=== PATIENT | female | born 1995 | race Caucasian/White ===

== ENCOUNTER 2025-05-02 13:07 | Emergency (ER) | payer OTHER, SELFPAY ==
[2025-05-02 13:28] VITALS: BP 130/66; PULSE 70; RESP 18; TEMP 37.2; O2SAT 99; BMI 25.1
--- OUTSIDE RECORDS SUMMARY | 2025-05-02 13:36 | XMS_ITS | Clinical Summary ---
Author Organization [facility] Address [address] [place] [address] Care Team Providers Care Acute Care Assistant Name Role Phone Unavailable Primary Care Provider Unavailabl e Social History Tobacco Use Types Packs/Day Years Used Date Smoking Tobacco: Never Assessed Comments Unknown Sex and Gender Information Value Date Recorded Sex Assigned at Not on file Legal Sex Female 7:41 PM EDT Gender Identity Not on file Sexual Orientation Not on file Plan of Treatment Health Maintenance Due Date Last Done Comments [facility]-Depression Screening 1995 [facility]-/Child/Adol SDOH Screenings 1995 [facility]-Varicella Vaccines (1 of 2 - 13+ 2-dose series) 2008 HPV Vaccines (1 - 3-dose series) 2010 [facility]- SDOH Screenings 2013 [facility]-Adult SDOH Screenings 2013 [facility]-DTaP,Tdap,and Td Vaccines (1 - Tdap) 2014 [facility]-Hepatitis B Vaccines (1 of 3 - 19+ 3-dose series) 2014 [facility]-Pap Smear 2016 09/16/2006 IWT-PJTTS-90 Vaccine (3 - 2023- season) 2024 08/10/2021, 07/20/2021 [facility]-Cervical Cancer Screening 2025 [facility]-HPV/Cotest 2025 09/16/2006 [facility]-Influenza Vaccine (Season Ended) 2025 [facility]-Zoster Vaccines (1 of 2) 2045 [facility]-HIB Vaccines Aged Out No longer e ligible based on patient's age to complete this topic [facility]-Hepatitis A Vaccines Aged Out No longer eligible based on patient's age to complete this topic [facility]-IPV Vaccines Aged Out No longer e ligible based on patient's age to complete this topic [facility]-Pneumococcal Vaccine: Pediatrics (0 to 5 Years) and At-Risk Patients (6 to 49 Years) Aged Out No longer eligible b ased on patient's age to complete this topic [facility]-Rotavirus Vaccines Aged Out No lo nger eligible based on patient's age to complete this topic Procedures Procedure Name Priority Date/Time Associated Diagnosis Comments CYTO DATA CONVERSION Routine 09/16/2006 12:00 AM EST from Last 3 Months or Most Recently Relevant to Health Maintenance Results * Cytology (09/16/2006 12:00 AM EST) Cyst fluid specimen (specimen) 09/16/2006 09/17/2006 8:25 AM EST Narrative SUNQUEST - 09/18/2006 4:41 PM EST [facility] MR #: [id number] [facility] [address] [place], [place] [address] 1995 (Age: 11) F Collect Date: 09/16/2006 00:00 Receipt Date: 09/17/2006 08:25 Page 1 DEPARTMENT OF PATHOLOGY AND LABORATORY MEDICINE CYTOPATHOLOGY REPORT Email: [email or web address] ATTENDING MD/Practitioner: Noel Jesus MD Service: PDS Location: 4W Reported: 09/18/2006 16:41 Collected: 09/16/2006 00:00 DIAGNOSIS A. OVARIAN CYST FLUID: NO MALIGNANCY IDENTIFIED. LYMPHOCYTES PRESENT. Electronically Signed Out Chela Mckay, TARAN(ASCP) Giselle Mcelroy MD PROCEDURES/ADDENDA GROSS DESCRIPTION: 50 ml's of tinted fluid. CLINICAL INFORMATION: CLINICAL DIAGNOSIS ovarian cyst, torsed ovary SPECIMEN DESCRIPTION: A: OVARIAN CYST FLUID THIN PREP PROCESS CELLULAR ENHANCEMENT ICD: 620.2 OVARIAN CYST NEC NOS F: A; 59828 SNOMED CODES: A; C96747 [id number] A resident has participated in this service. A pathologist has performed and is responsible for the reported pathologic evaluation. us Historical Provider MD LAB PATHOLOGY ORDERABLES Final Result SUNQUEST from Last 3 Months or Most Recently Relevant to Health Maintenance Insurance
--- OUTSIDE RECORDS SUMMARY | 2025-05-02 13:36 | XMS_ITS | Continuity of Care Document ---
[facility] Address [address] [place] [address] Assessment No assessment recorded. Plan of Treatment Reminders Order Date Submit Date Provider Last Modified By Organization Details Last Modified Time Details Appointments None recorded. Lab rapid strep group A, throat 025 [facility], [address] [place], [address], 5 10:50:07 dayna moreno virus Ab panel, serum 025 [facility], [address], [place], [address], 5 14:37:33 TSH, ultra-sen sitive, serum 025 025 [facility], [address], [place], [address], 5 14:37:34 CBC w/ auto diff 025 025 [facility], [address], [place], [address], 5 14:37:32 Referral None recorded. Procedures None recorded. Surgeries None recorded. Imaging US, thyroid 025 [facility], [address] [place] [address] , [place], [address], 08:02:32 Medication Orders None recorded. Patient TargetsNo targets recorded. Patient InstructionsNo instructions recorded. Reason for Referral None Reported. Results Created Date Observation Date Name Description Value Unit Range Abnormal Flag Note LastModifiedBy Organization Detail LastModifiedTime 03/29/2003/29/2025 rapid strep group A, throa t Strep negati ve Not Available [facility] [address] [place], [place] [address] [place], [address], 03/28/2025 09:29:10 03/29/20 25 03/29/2025 rapid strep group A, throa t Culture No Not Available [facility] [address] [place], [place] [address] [place], [address], 03/28/2025 09:29:10 04/04/20 US, thyro id No observ ation record ed. [email or web address] [address] , [place], [address], 04/06/2025 15:02:54 Result Notes None recorded. Problems Name Problem SNOMED Code Status Onset Date Resolution Date Notes Provider Name and Address Organization Details Recorded Time Mastodyni a of bilateral breasts 724758783691 56120 Completed 202203/10/2023 Kiera No APRN [address], [place], [address], [place] - [facility] 3 22:42:04 Fibrocyst ic changes of bilateral breasts 115536806316 59187 Active 2022 Christina Agarwal APRN [address], [place], [address], [place] - [facility] 3 13:53:12 Body mass index 25-29 - overweigh t 456810179 Completed 202212/13/2024 Kiera No APRN [address], [place], [address], [place] - [facility] 5 14:33:46 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 290434222 Active 2022 Christina Stefano, DAIRY EQUIPMENT SPECIALIST [address], [place], [address], [place] - [facility] 3 13:19:45 Tendernes s of breast 00203981 Completed 202212/12/2024 Kiera No, DAIRY EQUIPMENT SPECIALIST [address], [place], [address], [place] [facility] 5 15:33:26 Acute sinusitis 50415778 Completed 202212/12/2024 Josey Abbott null, [place] - [facility] 5 15:01:00 Laborator y test result abnormal 759722091 Active 2022 Hema [place], DO [address], [place], [address], [place] [facility] 3 08:50:30 Cough 41789068 Completed 202212/12/2024 Josey Abbott null, [place] - [facility] 5 15:01:04 Tension-t ype headache 104705256 Active 2022 Hema Soheila, DO [address], [place], [address], [place] [facility] 3 11:20:15 Benign fascicula tion-cram p syndrome 767383180 Active 2023 Hema Soheila, DO [address], [place], [address], [place] [facility] 4 13:05:16 Neck pain 85880171 Active 2023 Hema Soheila, DO [address], [place], [address], [place] [facility] 4 13:24:02 Irregular periods 76553338 Active 2024 Kiera No, DAIRY EQUIPMENT SPECIALIST [address], [place], [address], [place] [facility] 5 15:33:36 Body mass index 20-24 - normal 323401988 Active 2024 Kiera No, DAIRY EQUIPMENT SPECIALIST [address], [place], [address], [place] - [facility] 5 14:33:38 Chronic sore throat 202966631 Active 2024 Hema Parnell DO [address], [place], [address], [place] - [facility] 5 09:29:03 Problem Notes None recorded. Procedures Surgical History Date Name Laterality Status Provider Name and Address Organization Details Recorded Time 5 Date of Last Pap Smear completed Kiera No, DAIRY EQUIPMENT SPECIALIST [address], [place], [address], [place] - [facility] 12/14/2024 13:22:07 Removal of ovarian cyst(s) completed Josey Abbott [place] - [facility] 01/21/2023 08:37:34 Imaging Results None recorded. Procedure Notes None recorded. Medical Equipment None Reported. Allergies Allergen ID Allergen Name Allergen Category Reaction Reaction Severity Criticality Documentation Date Start Date Code Code System Note Provider Name and Address Organization Details Recorded Time 549452 Substance with sulfonami de structure and antibacte rial mechanism of action (substanc e) medicatio n rash Not available Not available 01/21/2023 71485 8003 SNOMED Josey Abbott [place], [place] - [facility] 3 08:32:22 Medications Name Sig Start Date Stop Date Status Note LastModified by Organization Details LastModified Time cyclobenzap rine 10 mg tablet Take 1 tablet every 4-6 hours by oral route as needed for 10 days. 07/03 completed Not Available Not Available Not Available amoxicillin 500 mg capsule 08/11 completed Not Available Not Available Not Available prednisone 10 mg tablet Take 1 tablet twice a day by oral route for 3 days. 07/24 completed Not Available Not Available Not Available doxycycline hyclate 100 mg capsule Take 1 capsule twice a day by oral route for 7 days. 05/18 completed Not Available Not Available Not Available azithromyci n 250 mg tablet TAKE 2 TABLETS (500 MG) BY ORAL ROUTE ONCE DAILY FOR 1 DAY THEN 1 TABLET (250 MG) BY ORAL ROUTE ONCE DAILY FOR 4 DAYS 12/12 completed Not Available Not Available Not Available prednisone 20 mg tablet Take 3 tablets every day by oral route for 5 days. 02/25 completed Not Available Not Available Not Available methocarbam ol 750 mg tablet Take 1 tablet twice a day by oral route for 3 days. 07/14 completed Not Available Not Available Not Available mupirocin 2 % topical ointment APPLY A SMALL AMOUNT TO THE AFFECTED AREA BY TOPICAL ROUTE 3 TIMES PER DAY 06/01 completed Not Available Not Available Not Available albuterol sulfate HFA 90 mcg/actuati on aerosol inhaler Inhale 2 puffs every 4 hours by inhalatio n route for 30 days. active Not Available Not Available No t Available fluticasone propionate 50 mcg/actuati on nasal spray,suspe nsion Tidioute 1 spray twice a day by intranasa l route for 14 days. 03/07 completed Not Available Not Available Not Available amoxicillin 875 mg-potassiu m clavulanate 125 mg tablet Take 1 tablet every 12 hours by oral route for 10 days. 06/01 completed Not Available Not Available Not Available clindamycin phosphate 1 % topical solution APPLY A SMALL AMOUNT TO SKIN TWICE A DAY (MORNING AND NIGHT) 01/21 completed Not Available Not Available Not Available cyclobenzap rine 5 mg tablet Take 1 tablet 3 times a day by oral route as needed for 10 days. 12/12 completed Not Available Not Available Not Available Vitals Date Recorded Body height Heart rate Oxygen saturation Oxygen saturation in Arterial blood by Pulse oximetry Body temperature Respiratory rate Body mass index (BMI) Body weight Systolic And Diastolic Provider Name and Address Organization Details Last Updated DateTime 5 177.8 cm 68 /min 97 % 97 % 98.2 [degF] 18 /min 24.7 kg/m2 95704.8 9 g 112/78 mm[Hg] Pasquale Biu [place] - [facility] 5 10:19:55 Social History Question Answer Notes LastModified by Organizat ion Details LastModified Time Tobacco Smoking Status Former Smoker Josey [place], [place] - [facility] 01/21/2023 08:36:25 Do You Have An Advance Directive? No Information not available 03/07/2024 Are You Blind Or Do You Have Difficulty Seeing? No Information not available 06/01/2023 What Is Your Level Of Caffeine Consumption? Heavy [email or web address] Information not available 01/21/2023 In The 14 Days Before Symptom Onset, Have You Had Close Contact With A Laboratory-confir med COVID-19 While That Case Was Ill? No Information not available 05/18/2023 In The 14 Days Before Symptom Onset, Have You Had Close Contact With A Person Who Is Under Investigation For COVID-19 While That Person Was Ill? No Information not available 05/18/2023 Have You Been To An Area Known To Be High Risk For COVID-19? No Information not available 05/18/2023 Are You Deaf Or Do You Have Serious Difficulty Hearing? No Information not available 06/01/2023 Have You Processed Blood Or Body Fluids From An Ebola Virus Disease Patient Without Appropriate PPE? No Information not available 05/18/2023 Do You Reside In Or Have You Traveled To An Area Where Ebola Virus Transmission Is Active? No Information not available 05/18/2023 What Is The Highest Grade Or Level Of School You Have Completed Or The Highest Degree You Have Received? [id number] [email or web address] Information not available 01/21/2023 Have There Been Any Changes To Your Family Or Social Situation? No Information no t available 06/01/2023 When Did You Quit Smoking? 1-5yearssincelast cigarette Information not available 01/21/2023 Have You Recently Or Are You Planning To Travel To An Area With Zika Virus? No Information not available 05/18/2023 Last Menstrual Period? 11/21/2024 [email or web address] Information not available 12/12/2024 Do You Have A Medical Power Of Ecommerce Marketing Specialist? No Information not available 03/07/2024 What Was The Date Of Your Most Recent Tobacco Screening? 03/29/2025 Information not available 03/29/2025 What Is Your Current Pack Years? 10packyears [email or web address] Information not available 01/21/2023 What Is Your Relationship Status? Single [email or web address] Information not available 01/21/2023 Are You Sexually Active? Yes [email or web address] Information not available 01/21/2023 At What Age Did You Start Smoking Tobacco? 18 [email or web address] Information not available 01/21/2023 Has Tobacco Cessation Counseling Been Provided? Yes [email or web address] Information not available 01/20/2024 On What Date Was Tobacco Cessation Counseling Provided? 03/29/2025 Information not available 03/29/2025 How Many Years Have You Smoked Tobacco? 4 [email or web address] Information not available 01/21/2023 Do You Have Difficulty Walking Or Climbing Stairs? No Information not available 06/01/2023 What Contraceptive Method Was Reported At Start Of This Visit? None [email or web address] Information not available 01/21/2023 What Contraceptive Method Was Reported At End Of This Visit? None [email or web address] Information not available 12/12/2024 Do You Want To Talk About Contraception Or Prevention During Your Visit Today? No - I Do Not Want To Talk About Contraception Today Because I Am Here For Something Else Information not available 01/21/2023 Do You Have Any Future Plans To Get ? I'm OK Either Way [email or web address] Information no t available 01/21/2023 Sex: Female Functional Status Question Answer Note LastModified by thereNowat ion Details LastModified Time How many times per week do you consume alcohol? Less than 1 time per week [email or web address] Information not available 01/20/2024 Do you use any illicit or recreational drugs? No Information not available 01/21/2023 Do you or have you ever used any other forms of tobacco or nicotine? No [email or web address] Information not available 01/21/2023 What is your level of alcohol consumption? Occasional [email or web address] Information not available 01/21/2023 Are you currently employed? Yes [email or web address] Information not available 01/21/2023 Do you have transportation difficulties? No Information not available 06/01/2023 What is your status? Not [email or web address] Information no t available 01/21/2023 Are you able to walk? YESWOREST Information not available 06/01/2023 Do you have difficulty doing errands alone? No Information not available 06/01/2023 Are you able to care for yourself? 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 No Information not available 06/01/2023 Mental Status Question Answer Note LastModified by Organization D etails LastModified Time Do you have difficulty concentrating, remembering or making decisions? No Information no t available 06/01/2023 Family History Relationship Description Onset Age of this Age Resolved Age Notes LastModified by Organization Details LastModified Time Maternal Grandmother Anxiety disorder Not available 2022 08:34:31 Maternal Grandmother Depressive disorder Not available 2022 08:34:37 Maternal Grandmother Diabetes mellitus [email or web address] Not available 2022 08:34:54 Maternal Grandmother Malignant tumor of breast Not available 2022 08:35:14 Maternal Grandfather Myocardial infarction [email or web address] Not available 01/21 08:34:48 Paternal Grandfather Malignant neoplasm of lung [email or web address] Not available 2022 08:35:08 Sister Graves' disease [email or web address] Not available 2024 15:20:48 Maternal Aunt Graves' disease [email or web address] Not available 2024 15:20:48 Medical History Condition Response Pancreatitis N Other N Atrial Fibrillation N congenital heart disease N Blood Diseases N Hyperthyroidism N Rheumatoid arthritis N Blood Transfusion N Erectile Dysfunction N amputation N Skin Lesions N Depression N Pneumonia N Incontinence N Murmur N Edema N Alzheimer's Disease N Migraine Headaches N Tobacco Abuse N Anxiety Disorder N Hemorrhoids N Obesity N Vision or Eye Problems N Arthritis N Restless Leg Syndrome N Polyps N Infertility N Carpal Tunnel N Acid Reflux (GERD) N Cancer N Varicosities N Stroke N Tendonitis N Crohn's Disease N Hypercholesterolemia N Skin Cancer N Headaches N Fibromyalgia N Irritable Bowel Syndrome N Anal Fissure N Kidney Disease N Heart Problems N Hospitalizations N Gallstones N Kidney or Bladder Problems N Goiter N Acne N Eating Disorder N Ballard's Esophagus N Hypertriglyceridemia N Constipation N Embolism N Vitamin B12 Deficiency N Deviated Septum N AIDS/HIV N Myocardial Infarction N Asthma N Mitral Valve Disorders N Vertigo N Hepatitis N Thyroid Cancer N Neuropathy N History of DVT N Herniated Disc N Chicken Pox N Autism Spectrum Disorder (ASD) N Von Willebrands Disease N Thrombophilias N Breast Cancer N Hernia N Plantar Fasciitis N Hypothyroidism N Lung Disease N Defects or Inherited Disease N Breast Problem N Ovarian Cyst N Anesthesia Complications N Testosterone Deficiency N Interstitial Cystitis N Congenital Anomalies N Hypoglycemia N Blood clot N Vitamin D Deficiency N Cellulitis N Endometriosis N Bladder or Kidney Problems N Fracture N Colorectal Cancer N Panic Disorder N Schizophrenia N Concussion N Spina Bifida N Osteoarthritis N Parkinson's Disease N Disc Protrusion N STI N Esophagitis N Angina N Thyroid Problems N GI Problems N ADD/ADHD N Anemia N Multiple Sclerosis N Abnormal PAP N Lumbago N Mental Illness N Psychiatric Illness N Diabetes N Ovarian Cancer N Degenerative Disc Disease N Seizures/Epilepsy N Hyperlipidemia N Syncope N Insomnia N Eczema N Abuse/Domestic Violence N Attention Deficient Disorder N Dementia N Ulcerative colitis N Cerebrovascular Disease N Depression N Guillain-Sardis N Sleep Apnea N Aneurysm N Bronchitis N Heart Disease N Hypertension N Pre-Eclampsia N Suicidal Ideation N Osteoporosis N Gynecological History Statement/Question Response Flow Moderate Date of Last Mammogram Date of LMP 03/18/2025 STIs/STDs Y Duration of Flow (days) 4 Current Control Method None Age at Menarche 11 Last Annual Exam/Provider 12/12/24 with D T Frequency of Cycle (Q days) 28 Sexually Active? Y Date of Last Cervical Culture Menses Monthly Y Date of Last Pap Smear 12/12/2024 LMP Approximate Desired Control Method None Obstetrics History GPAL:G 0 P 0 0 0 0 Type Value Full Term 0 Living 0 Total 0 Immunizations Vaccine Type Date Status Note Provider Nam e and Address Organization Details Recorded Time COVID-19, mRNA, LNP-S, PF, 30 mcg/0.3 mL dose 07/20/2021 completed [facility] 01/21/2023 08:24:42 COVID-19, mRNA, LNP-S, PF, 30 mcg/0.3 mL dose 08/10/2021 completed [facility] 01/21/2023 08:24:42 Past Encounters Encounter ID Performer Location Encounter Start Date Encounter Closed Date Diagnosis/Indication Diagnosis SNOMED-CT Code Diagnosis ICD10 Code Diagnosis Note [id number] Hema Parnell DO [place] [address] [place] [place] [place] [address] 03/29/2025 09:58:31 03/29/2025 10:54:51 Chronic sore throat 293234684 J31.2 Throat pain. Patient had negative strep testing today in the office. Patient will have thyroid testing in the form of TSH as well as an ultrasound and we will also check EBV titers today. Patient will also have a CBC obtained although she did not have palpable lymphadeno megan. If testing remains normal, will refer patient to otolaryngo logy for considerat ion of direct visualizat ion. Health Concerns Section Related Observation LastModified by Organization Detai ls LastModified Time None Recorded Concern Status LastModified by Organization Details LastModified Time None Recorded Payers Encounter Date Sequence Insurance Name Policy Number Policy Coughlin Covered Member ID Coughlin Member ID Guarantor Name 03/29/2025 1 *SELF PAY* Tavares Kaiser Notes Date Note Type Note Provider Name and Address Organization Details Recorded Time 03/29/2025 text/html 29-year-old helena landeros seen in the office today for an acute visit for recurring sore throat.Patient states for the last 2 to 3 months she has noticed what she describes as throat pain. Patient states that is not scratchy or sore but she feels like it is more muscular. Patient is unsure what makes it better and she is unsure what makes it worse. Patient does have a family history of thyroid disease in the forms of Graves' disease as well as thyromegaly. Patient denies any reflux symptoms but states she does occasionally feel as if she has trouble swallowing. Patient also denies her symptoms getting worse with moving her neck. Hema Parnell, DO [address], [place], [address], [place] - [facility] 03/29/2025 11:10:46 OBGyn Episode No OBEpisode recorded.
--- OUTSIDE RECORDS SUMMARY | 2025-05-02 13:36 | XMS_ITS | Data Portability ---
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 Possible RAD 2. Dyspnea *PFT (01/25/2024): no restriction, borderline midlfow obstruction PFT completed at outside facility *FeNO (2024): 15 3. History of pleurisy 4. Seasonal allergies Plan 1. Sample Trelegy 100 mcg 1 puff daily; Rinse mouth; I personally demonstrated use of the Ellipta device during todays office visit 2. Renew Albuterol HFA prn; Discussed indications for use 3. Order RAST/CBC/IgE (sent to [facility]) 4. Advised to avoid known triggers 5. RTO in 2 weeks for medication follow up and lab review *FeNO measurement was obtained in the office today due to the patient's complaints of shortness of breath and cough. Not available 04/05/2024 18:32:10 04/28/2024 04/28/2024 Imaging Studies Reviewed *CXR (08/14/2023): no acute findings Assessment 1. Possible RAD 2. Dyspnea *PFT (01/25/2024): no restriction, borderline midlfow obstruction PFT completed at outside facility *FeNO (2024): 15 3. History of pleurisy 4. Seasonal allergies *RAST Panel (2024): +[place] elm tree *IgE: 65 *EOS: 70 Plan 1. Continue Trelegy 100 mcg 1 puff daily; Rinse mouth after each use (RX sent & Co Pay card provided to patient) 2. Continue Albuterol HFA prn; Discussed indications for use 3. Advised to avoid known triggers 4. RTO in 6 months, sooner if needed Portions of this note may be dictated using voice recognition software and or use of a hospital medical biller. Variances in spelling and vocabulary are possible and unintentional. Not all errors are caught/corrected . Please notify the author if any discrepancies are noted or if the meaning of any statement is not clear. This is a summary discussion with the patient and in no way is intended to be a verbatum summation of everything discussed. We apologize for any inconvenience. Not available 04/28/2024 15:15:14 10/31/2024 10/31/2024 Imaging Studies Reviewed *CXR (08/14/2023): no acute findings Assessment 1. Possible RAD 2. Dyspnea *PFT (01/25/2024): no restriction, borderline midlfow obstruction PFT completed at outside facility *FeNO (2024): 15 3. History of pleurisy 4. Seasonal allergies *RAST Panel (2024): +[place] elm tree *IgE: 65 *EOS: 70 Plan 1. Patient discontinued Trelegy 100 mcg 2. Continue Albuterol HFA prn; Discussed indications for use 3. Advised to avoid known triggers 4. RTO as scheduled for PFT and results This service is rendered via Telehealth. Prior to interview, patient confirmed their name and full date of as unique identifiers. Patient informed of the telehealth visit process by this policy writer. Telehealth was described to patient as the use of communication technology to provide clinical care from a distance. Telehealth visits can provide the same medical standard of care as visits conducted in an office for specific conditions. Patient informed that medical information during telehealth visits will be handled with strict confidentiality, privacy and security; however, there are risks associated with any communication technology. Patient granted their verbal consent to proceed with this visit via technology based communication. Provider Location: [place] Office Patient Location: Patients Car Start Time:1359 Stop Time:1403 Total clinician time spent on date of this encounter is 30 minutes. Portions of this note may be dictated using voice recognition software and or use of a hospital medical biller. Variances in spelling and vocabulary are possible and unintentional. Not all errors are caught/corrected . Please notify the author if any discrepancies are noted or if the meaning of any statement is not clear. This is a summary discussion with the patient and in no way is intended to be a verbatum summation of everything discussed. We apologize for any inconvenience. Not available 10/31/2024 18:10:24 11/09/2024 11/09/2024 Imaging Studies Reviewed *CXR (08/14/2023): no acute findings Assessment 1. Possible RAD 2. Dyspnea *PFT (01/25/2024): no restriction, borderline midlfow obstruction PFT completed at outside facility *PFT (11/09/2024): no obstruction, mild restriction, no change after MELINDA *FeNO (2024): 15 3. History of pleurisy 4. Seasonal allergies *RAST Panel (2024): +[place] elm tree *IgE: 65 *EOS: 70 Plan Order CXR (sent to [facility]) RX Z gera as directed 1. Patient discontinued Trelegy 100 mcg; Resume 1 puff daily for next 5 days 2. Continue Albuterol HFA prn; Discussed indications for use (RX Renewed) 3. Advised to avoid known triggers 4. RTO in 6 months, sooner if needed The patient underwent pulmonary function testing today to evaluate complaints of dyspnea. Results were discussed with the patient. Portions of this note may be dictated using voice recognition software and or use of a hospital medical biller. Variances in spelling and vocabulary are possible and unintentional. Not all errors are caught/corrected . Please notify the author if any discrepancies are noted or if the meaning of any statement is not clear. This is a summary discussion with the patient and in no way is intended to be a verbatum summation of everything discussed. We apologize for any inconvenience. Not available 11/09/2024 14:18:28 Plan of Treatment Reminders Order Date Submit Date Provider Last Modified By Organization Details Last Modified Time Details Appointments COMPLETE PFT 2024 02:00P M Pulmonary _testing Schedule Not available Not available Not available FOLLOW_UP 2024 02:40P M Mirlande Chin, [employer] Not available Not available Not available Lab CBC w/ diff 2023 024 [facility] (Registration ), [address], [place], [address], 04/13/2024 08:35:23 respirato ry allergen panel - [facility] - TEST FOR ZONE 5 2023 024 [facility] (Registration ), [address], [place], [address], 04/11/2024 08:38:54 Referral None recorded. Procedures None recorded. Surgeries None recorded. Imaging XR, chest, 2 view 2024 025 [facility] (Registration ), [address], [place], [address], 11/09/2024 16:27:38 Medication Orders Zithromax Z-Gera 250 mg tablet 2024 025 [facility] [id number], [address] , [place], [address], 11/09/2024 13:55:30 albuterol sulfate HFA 90 mcg/actua tion aerosol inhaler 2024 025 [facility] [id number], [address] , [place], [address], 11/09/2024 13:55:32 albuterol sulfate HFA 90 mcg/actua tion aerosol inhaler 2023 024 [facility] [id number], [address] , [place], [address], 2024 15:56:58 Patient TargetsNo targets recorded. Patient InstructionsNo instructions recorded. Reason for Referral None Reported. Results Created Date Observation Date Name Description Value Unit Range Abnormal Flag Note LastModifiedBy Organization Detail LastModifiedTime 04/08/20 24 2024 fract ional exhal ed nitri c oxide * No observ ation record ed. Not Available 2023 13:25:03 04/08/20 24 04/08/2024 compl ete PFT w/ post [facility] hodil ator rafael metry * No observ ation record ed. [email or web address] Not Available 2023 15:41:37 04/08/20 24 08/14/2023 XR, chest , 2 view No observ ation record ed. [email or web address] Not Available 2023 15:52:59 11/09/19 25 11/09/2024 XR, chest , 2 view No observ ation record ed. [email or web address] [place] [address] , [place], [address], 11/10/2024 11:16:51 11/14/19 25 11/09/2024 compl ete PFT* No observ ation record ed. [email or web address] Not Available 2024 16:08:27 Result Notes None recorded. 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 336367484 Active 2023 david [place], [place] - [facility] 4 09:36:37 Acute sinusitis 58760207 Active 2023 david gabriel null, [place] - [facility] 4 09:36:53 Tenderness of breast 38154179 Active 2023 david gabriel null, [place] - [facility] 4 09:37:25 Cough 46332776 Active 2023 david tuel null, [place] - [facility] 4 09:37:38 Fibrocystic changes of bilateral breasts 5197758274331 9105 Active 2023 david tuel null, [place] - [facility] 4 09:38:13 Mycoplasma species or Ureaplasma urealyticum 104864428 Active 2023 david tuel null, [place] - [facility] 4 09:39:21 Frequent headache 310414273 Active 2023 david tuel null, [place] - [facility] 4 09:40:25 Dyspnea 364026575 Active 2023 david tuel null, [place] - [facility] 4 09:40:38 Seasonal allergy 271700394 Active 2023 Mirlande Chin NP [address], [place], [address], [place] - [facility] 4 15:55:38 Pleurisy 316870643 Active 2023 Mirlande Chin NP [address], [place], [address], [place] - [facility] 4 18:32:17 Reactive airway disease 937830375969 Active 2023 Mirlande Chin NP [address], [place], [address], [place] - [facility] 4 14:42:18 Upper respiratory infection 63618502 Active 2024 Mirlande Chin NP [address], [place], [place], [address], [place] - [facility] 5 13:54:12 Problem Notes None recorded. Procedures Surgical History Date Name Laterality Status Provider Name and Address Organization Details Recorded Time Removal of ovarian cyst(s) completed brady preston [facility] 2024 15:35:20 Imaging Results None recorded. Procedure Notes None recorded. Medical Equipment None Reported. Allergies Allergen ID Allergen Name Allergen Category Reaction Reaction Severity Criticality Documentation Date Start Date Code Code System Note Provider Name and Address Organization Details Recorded Time 38590 Substance with sulfonami de structure and antibacte rial mechanism of action (substanc e) medicatio n Not available Not available Not available 03/24/2024 64749 8003 SNOMED david [place] [facility] 09:34:30 Medications Name Sig Start Date Stop Date Status Note LastModified by Organization Details LastModified Time cyclobenzap rine 10 mg tablet 04/04 completed Not Available Not Available Not Available amoxicillin 500 mg capsule 04/04 completed Not Available Not Available Not Available prednisone 10 mg tablet 04/04 completed Not Available Not Available Not Available doxycycline hyclate 100 mg capsule 04/04 completed Not Available Not Available Not Available azithromyci n 250 mg tablet TAKE 2 TABLETS (500 MG) BY ORAL ROUTE ONCE DAILY FOR 1 DAY THEN 1 TABLET (250 MG) BY ORAL ROUTE ONCE DAILY FOR 4 DAYS active Not Available Not Available No t Available prednisone 20 mg tablet 04/04 completed Not Available Not Available Not Available methocarbam ol 750 mg tablet 04/04 completed Not Available Not Available Not Available mupirocin 2 % topical ointment 04/04 completed Not Available Not Available Not Available albuterol sulfate HFA 90 mcg/actuati on aerosol inhaler Inhale 2 puffs every 4 hours by inhalatio n route as needed for 30 days. active Not Available Not Available No t Available fluticasone propionate 50 mcg/actuati on nasal spray,suspe nsion 04/04 completed Not Available Not Available Not Available amoxicillin 875 mg-potassiu m clavulanate 125 mg tablet 04/04 completed Not Available Not Available Not Available Trelegy Ellipta 100 mcg-62.5 mcg-25 mcg powder for inhalation Inhale 1 puff every day by inhalatio n route. 01/08 /2025 completed Not Available Not Available Not Available albuterol 90 mcg-budeson mando 80 mcg/actuati on HFA aerosol inhaler Inhale 2 inhalatio ns every 4 hours by inhalatio n route as needed. 04/04 completed Not Available Not Available Not Available Vitals Date Recorded Body height Body mass index (BMI) Body weight Oxygen saturation Oxygen saturation in Arterial blood by Pulse oximetry Heart rate Body temperature Systolic blood pressure Diastolic blood pressure Provider Name and Address Organization Details Last Updated DateTime 5 175.26 cm 25.1 kg/m2 86587.7 g 96 % 96 % 76 /min 98 [degF] 112 mm[Hg] 62 mm[Hg] david gabriel [facility] 5 13:46:48 Date Recorded Body weight Body mass index (BMI) Body height Oxygen saturation Oxygen saturation in Arterial blood by Pulse oximetry Heart rate Respiratory rate Body temperature Systolic blood pressure Diastolic blood pressure Provider Name and Address Organization Details Last Updated DateTime 4 50135.6 6 g 25.8 kg/m2 175.26 cm 100 % 100 % 75 /min 18 /min 98.6 [degF] 122 mm[Hg] 74 mm[Hg] brady preston [facility] 4 15:32:38 Date Recorded Body height Body mass index (BMI) Body weight Oxygen saturation Oxygen saturation in Arterial blood by Pulse oximetry Heart rate Respiratory rate Body temperature Systolic blood pressure Diastolic blood pressure Provider Name and Address Organization Details Last Updated DateTime 4 175.26 cm 25.8 kg/m2 48739.6 6 g 100 % 100 % 55 /min 16 /min 97.5 [degF] 102 mm[Hg] 70 mm[Hg] david gabriel [facility] 4 14:42:30 Social History Question Answer Notes LastModified by Organization Details LastModified Time Tobacco Smoking Status Former Smoker [place] [facility] 04/01/2024 11:56:21 Do You Have An Advance Directive? No [email or web address] Information not available 04/01/2024 Is Your Home Air Conditioned? Yes Information not available 2024 When Did You Quit Smoking? 1-5yearssincelast cigarette Information not available 04/01/2024 Where Do You Live? [place] Information not available 2024 Do You Have A Medical Power Of Mental Retardation Nurse? No [email or web address] Information not available 04/01/2024 What Was The Date Of Your Most Recent Tobacco Screening? 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 10-19packyears [email or web address] Information not available 04/01/2024 Do You Have Any Pets? Yes 5 Cats, 2 Dogs [email or web address] Information not available 2024 What Is Your Relationship Status? Single [email or web address] Information not available 04/01/2024 At What Age Did You Start Smoking Tobacco? 18 Information not available 04/01/2024 Are There Any Smokers In Your House? Yes Boyfriend Vapes [email or web address] Information not available 2024 Has Tobacco Cessation Counseling Been Provided? No [email or web address] Information not available 2024 How Many Years Have You Smoked Tobacco? 4 [email or web address] Information not available 04/01/2024 Have You Recently Traveled Abroad? No [email or web address] Information not available 04/01/2024 Are You Currently In School? No [email or web address] Information not available 2024 Sex: Unknown Functional Status Question Answer Note LastModified by Organizat ion Details LastModified Time Do you or have you ever used any other forms of tobacco or nicotine? No [email or web address] Information not available 04/01/2024 Are you currently employed? 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 Family History Relationship Description Onset Age of this Age Resolved Age Notes LastModified by Organization Details LastModified Time Maternal Grandmother Anxiety disorder [email or web address] Not available 04/01 11:58:23 Maternal Grandmother Depressive disorder [email or web address] Not available 04/01 11:58:35 Maternal Grandmother Diabetes mellitus Not available 04/01 11:58:49 Maternal Grandmother Malignant tumor of breast [email or web address] Not available 04/01 11:59:10 Maternal Grandfather Myocardial infarction Not available 03/04 11:59:19 Paternal Grandfather Malignant neoplasm of lung [email or web address] Not available 04/01 11:59:42 Medical History No medical history recorded. Gynecological HistoryNo gynecological history recorded. Obstetrics History GPAL:G 0 P 0 0 0 0 Past Encounters Encounter ID Performer Location Encounter Start Date Encounter Closed Date Diagnosis/Indication Diagnosis SNOMED-CT Code Diagnosis ICD10 Code Diagnosis Note [id number] Mirlande Chin NP [address] [place] [address] [place] [address] 0 2024 15:13:45 04/06/2024 14:47:01 Seasonal allergy 772440161 J30.2 Dyspnea 508024307 R06.00 [id number] Mirlande Chin NP [address] [place] [address] [place] [address] 0 04/28/2024 14:37:56 04/28/2024 15:07:25 Seasonal allergy 131331183 J30.2 Dyspnea 482272026 R06.00 Reactive a irway disease 8601297016 06 J45.909 [id number] Mike Maza DO [address] [place] [address] [place] [address] 0 10/31/2024 13:46:55 10/31/2024 14:22:10 Reactive airway disease 3146805639 06 J45.909 Seasonal allergy 8945902 04 J30.2 Dyspnea 494848823 R06.00 [id number] Mike Maza DO [address] [place] [address] [place] [address] 0 11/09/2024 13:12:17 11/09/2024 14:24:24 Reactive airway disease 1584843460 06 J45.909 Seasonal allergy 5959798 04 J30.2 Dyspnea 516913025 R06.00 Upper resp iratory infection 14272857 J06.9 Health Concerns Section Related Observation LastModified by Organization Detai ls LastModified Time None Recorded Concern Status LastModified by Organization Details LastModified Time None Recorded Advance Directives Directive N: Payers Insurance Date Sequence Insurance Name Policy Number Policy Coughlin Covered Member ID Coughlin Member ID Guarantor Name 11/09/2024 1 [place] [id number] Vidhya Workman [id number] Vidhya Workman 05/02/2025 1 [facility] [id number] Vidhya Workman [id number] Vidhya Workman Notes Date Note Type Note Provider Name and Address Organization Details Recorded Time 2024 text/html This 29 year-old female presents to the office for evaluation of dyspnea, and recurrent pleurisy.Patient reports episode of pleurisy in August that resolved and returned in December. She describes feeling a tickle in her lungs with deep breathing. She does note her symptoms can be aggravated by dust and cleaning products. Today she complains of shortness of breath with exertion and intermittent cough with clear mucus. She is not currently on any inhaled respiratory medications. She ran out of Albuterol about a month ago.She is a former 1/2 PPD smoker quitting in 2019. 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 A focused sleep assessment is negative for ELISE.Denies any fever, chills, nausea, vomiting, or diarrhea. Mirlande Chin NP [address], [place], [address], [facility] 04/05/2024 18:33:59 04/28/2024 text/html This 29 year-old female returns to the office to discuss the results of a RAST panel completed on (2024) and the ongoing management of dyspnea. The results and proposed treatment plan were discussed with the patient. The patient denies any further chest discomfort. No cough, wheezing, shortness of breath or nocturnal respiratory symptoms.She continues to use Trelegy 100 mcg with positive results and has been using her Albuterol inhaler 2 puffs every other day. Denies any fever, chills, nausea, vomiting, or diarrhea. Mirlande Chin NP [address], [place], [address], [place] - [facility] 04/28/2024 15:15:34 10/31/2024 text/html This is a 29 year-old female who presents to the office today via telemedicine audio/video visit via [facility] for the ongoing management of RAD. Patient denies any significant medical events since her last office visit. Patient does state she has moved into a newer home with less mold and dust exposure. Patient denies any shortness of breath. She does report occasional dry cough and wheezing when laughing. She is no longer using Trelegy (discontinued in June) and no use of RI. Denies any fever, chills, n/v/d, abdominal pain or lower extremity edema. Mirlande Chin NP [address], [place], [address], [facility] - [facility] 10/31/2024 18:10:47 11/09/2024 text/html This 29 year-old female returns to the office for the ongoing management of RAD. The patient complains of increased shortness of breath, a cough with yellow and clear phlegm, and a sensation of crackling in her chest over the past few days. Denies any recent use of Albuterol HFA. Patient would like to have a CXR today. Denies any fever, chills, n/v/d, abdominal pain or lower extremity edema. Mirlande Chin NP [address], [place], [address], [facility] - [facility] 11/09/2024 14:19:08 OBGyn Episode No OBEpisode recorded.
--- OUTSIDE RECORDS SUMMARY | 2025-05-02 13:37 | XMS_ITS | Data Portability ---
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 not available 03/29/2025 How Many Years Have You Smoked Tobacco? 4 [email or web address] Information not available 01/21/2023 Do You Have Difficulty Walking Or Climbing Stairs? No Information not available 06/01/2023 What Contraceptive Method Was Reported At Start Of This Visit? None [email or web address] Information not available 01/21/2023 What Contraceptive Method Was Reported At End Of This Visit? None [email or web address] Information not available 12/12/2024 Do You Want To Talk About Contraception Or Prevention During Your Visit Today? No - I Do Not Want To Talk About Contraception Today Because I Am Here For Something Else [email or web address] Information not available 01/21/2023 Do You Have Any Future Plans To Get ? I'm OK Either Way [email or web address] Information no t available 01/21/2023 Sex: Female Functional Status Question Answer Note LastModified by Organizat ion Details LastModified Time How many times per week do you consume alcohol? Less than 1 time per week [email or web address] Information not available 01/20/2024 Do you use any illicit or recreational drugs? No [email or web address] Information not available 01/21/2023 Do you or have you ever used any other forms of tobacco or nicotine? No [email or web address] Information not available 01/21/2023 What is your level of alcohol consumption? Occasional Information not available 01/21/2023 Are you currently employed? Yes [email or web address] Information not available 01/21/2023 Do you have transportation difficulties? No Information not available 06/01/2023 What is your status? Not [email or web address] Information no t available 01/21/2023 Are you able to walk? [email or web address] Information not available 06/01/2023 Do you have difficulty doing errands alone? No Information not available 06/01/2023 Are you able to care for yourself? 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 [email or web address] Information not available 01/21/2023 Do you have [...] available 2022 08:34:31 Maternal Grandmother Depressive disorder [email or web address] Not available 2022 08:34:37 Maternal Grandmother Diabetes mellitus [email or web address] Not available 2022 08:34:54 Maternal Grandmother Malignant tumor of breast [email or web address] Not available 2022 08:35:14 Maternal Grandfather Myocardial infarction [email or web address] Not available 01/21 08:34:48 Paternal Grandfather Malignant neoplasm of lung [email or web address] Not available 2022 08:35:08 Sister Graves' disease [email or web address] Not available 2024 15:20:48 Maternal Aunt Graves' disease Not available 2024 15:20:48 Medical History Condition [...] Obesity N Vision or Eye Problems N Restless Leg Syndrome N Arthritis N Infertility N Polyps N Carpal Tunnel N Acid Reflux (GERD) N Cancer N Stroke N Varicosities N Tendonitis N Crohn's Disease N Hypercholesterolemia N Skin Cancer N Fibromyalgia N Headaches N Anal Fissure N Irritable Bowel Syndrome N Kidney Disease N Heart Problems N [...] Cancer N Hernia N Plantar Fasciitis N Lung Disease N Hypothyroidism N Defects or Inherited Disease N Breast Problem N Ovarian Cyst N Anesthesia Complications N Testosterone Deficiency N Interstitial Cystitis N Congenital Anomalies N Hypoglycemia N Blood clot N Vitamin D Deficiency N Cellulitis N Endometriosis N Fracture N Bladder or Kidney Problems N Colorectal Cancer N Panic Disorder N [...] colitis N Cerebrovascular Disease N Depression N Guillain-[place]land N Sleep Apnea N Aneurysm N Bronchitis [...] Immunizations Vaccine Type Date Status Note Provider Yevgeniy dobbins and Address Organization Details Recorded Time COVID-19, mRNA, LNP-S, PF, 30 mcg/0.3 mL dose 07/20/2021 completed [place] - [facility] 01/21/2023 08:24:42 COVID-19, mRNA, LNP-S, PF, 30 mcg/0.3 mL dose 08/10/2021 completed Josey [place], [place] - [facility] 01/21/2023 08:24:42 Past Encounters Encounter ID Performer Location Encounter Start Date Encounter Closed Date Diagnosis/Indication Diagnosis SNOMED-CT Code Diagnosis ICD10 Code Diagnosis Note [id number] ELAINE Marroquin [employer] [address] [place] [address] [place] [address] 01/21/2023 08:15:14 01/21/2023 08:56:41 Mastodynia of bilateral breasts 2514281916 5847454 N64.4 Fibrocysti c changes of bilateral breasts 0433928371 3136104 N60.11 N60.12 [id number] ELAINE Marroquin [employer] [address] [place] [address] [place] [address] 03/09/2023 11:11:51 03/09/2023 11:56:40 Routine gynecologic examination done 9159813790 9101 Z01.419 Depression screening 171 570402 Z13.89 PHQ-9 completed today. Diet education 47854273 Z71.3 Counseling 724089688 Z71 .82 Exercise counselkeny quintana Patient encouraged to exercise 30 minutes 5 days a week. Examinatio n of blood pressure 879813163 Z01.30 Hypertensi on screening 995264522 Z13.6 Screening for malignant neoplasm of cervix 069914875 Z12.4 Body mass index 25-29 - overweight 669473206 Z68.25 Overweight 668664445 E66 .3 Fibrocysti c changes of bilateral breasts 3409044808 6840211 N60.11 N60.12 [id number] ELAINE Daniel [employer] [address] [place] [address] [place] [address] 04/16/2023 13:36:33 04/16/2023 14:04:00 Vaginal discharge problem 806260232 N89.9 [id number] Florencio Erazo APRN [address] [address] 05/18/2023 14:19:54 05/18/2023 15:46:12 Muscle tender point 860760998 R29.898 Fatigue 35340287 R53.83 return 2 weeks for review of labs and treatment plan Tick bite 23065585 W57.X XXA Cramp 00693587 R25.2 Disorder o f thyroid gland 84648538 E07.9 [id number] Florencio Erazo [address] [address] 05/21/2023 11:07:32 05/21/2023 12:04:12 Cat bite - wound 618645161 T14.8XXA keep areas clean and dryapply creamwatch for s/s of infectionr eturn if any worsening or no improvemen t [id number] 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 [address] 07/03/2023 09:40:36 07/03/2023 10:28:49 Strain of neck muscle 464714878 S16.1XXA [id number] Florencio Erazo [address] [address] 07/14/2023 14:37:42 07/14/2023 15:10:15 Strain of neck muscle 601998188 S16.1XXA follow up if no improvemen t [id number] Vernon TONE Fraire[address] [address] 07/24/2023 08:41:17 07/24/2023 09:07:31 Acute sinusitis 11609517 J01.90 Patient likely has an acute bacterial sinusitis. Will treat as below.No signs of preseptal or orbital cellulitis , meningismu s, or neurologic changes concerning for intracrani al process. Instructed family to monitor patient closely and call office for any of these symptoms.S upportive care reviewed: raising HOB, humidifier use, saline nasal spray, rest, encourage PO fluids and monitor hydration status, infection control measures.R ecommended acetaminop hen/ibupro fen PRN pain, fever; reviewed appropriat e doses.Foll ow-up as below. [id number] Florencio Erazo [address] [address] 08/11/2023 11:24:55 08/11/2023 12:00:49 Tick bite 95628224 W57.XXXA Lupus anti coagulant disorder 41827654 D68.62 recheck labs [id number] Hema Parnell DO [place] [address] [place] [address] 08/14/2023 10:55:25 08/14/2023 11:51:18 Cough 71062315 R05.9 Cough. Episodic. Chest x-ray reviewed and discussed with patient in detail. Patient will also have CBC and procalcito ant ordered today to assess. Patient will also have BELKIS level obtained. Patient will be given albuterol for symptom control as well as a 5-day course of prednisone . Tension-type headache 39 0349590 G44.209 Headache, tension. Differenti al diagnosis and usual treatment options discussed with patient in detail. Patient will be referred to physical therapy for cervical range of motion as well as local therapy to the cervical spine and posterior head musculatur e. Laboratory test result abnormal 367684752 R89.9 Lupus anticoagul ant panel abnormal. Patient recently had repeat labs drawn will await results for recommenda tions for further work-up. [id number] Hema Parnell [address] [place] [address] 01/20/2024 14:02:11 01/20/2024 14:23:58 Cough 66080568 R05.9 Cough. Concerns for asthma, patient will have pulmonary function test ordered today. Patient will also be given prednisone for 5 days and an albuterol inhaler to use as needed. Tension-type headache 39 1323340 G44.209 Headache, tension. Differenti al diagnosis and usual treatment options discussed with patient in detail. Body mass index 25-29 - overweight 394656938 Z68.25 Overweight 409832974 E66 .3 [id number] Hema Parnell [address] [place] [address] 02/26/2024 12:42:29 02/26/2024 13:15:47 Body mass index 25-29 - overweight 218724335 Z68.25 Benign fasciculation-cramp syndrome 405212603 R25.3 Benign fasciculat ion syndrome. Differenti al diagnosis and usual workup and treatment discussed with patient in detail. Patient was also warned about warning signs and when to reappoint herself. Patient will have CMP obtained today to assess for electrolyt e abnormalit y as a cause for the fasciculat ion. Will consider further workup if symptoms do not improve or change. [id number] Florencio Erazo APRN [address] [address] 03/07/2024 13:38:07 03/07/2024 14:18:54 Frequent headache 151585704 R51.9 due to vison issues, padilla not improving with tylenol,mo carri, or resting will obtain ct while waiting on neurology appointmen t Dyspnea 257901003 R06.00 [id number] Hema Parnell [address] [place] [address] 09/15/2024 12:59:41 09/15/2024 13:54:12 Body mass index 20-24 - normal 343772496 Z68.24 Neck pain 12667139 M54.2 Cervicalgi a. Discussed usual presenting diagnosis as well as differenti al diagnosis in detail. Believe likely related to muscle strain and patient was advised on stretching . Did offer physical therapy and massage therapy as treatment modalities . Patient was given cyclobenza demetria to use at night if necessary to get comfortabl e for sleep. Patient will reappoint herself if symptoms do not improve or worsen. 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 Diet education 05269164 Z71.3 Counseling 513290092 Z71 .82 Exercise counselkeny quan. Patient encouraged to exercise 30 minutes 5 days a week. Examinatio n of blood pressure 207709559 Z01.30 Hypertensi on screening 065701779 Z13.6 Body mass index 20-24 - normal 289560660 Z68.24 Vaccination declined 427 7541160 Z28.21 Seasonal flu vaccine offered and declined Irregular periods 631350 07 N92.6 Fibrocysti c changes of bilateral breasts 6512574461 8084818 N60.11 N60.12 Screening for malignant neoplasm of cervix 313782169 Z12.4 Immunization advised 310 893403 Z71.9 [id number] Hema Parnell DO [facility] [address] [place] [address] 03/29/2025 09:58:31 03/29/2025 10:54:51 Chronic sore throat 740261743 J31.2 Throat pain. Patient had negative strep [...] Member ID C[place] Member ID Guarantor Name 09/15/2024 1 *SELF PAY* Tavares Kaiser 09/15/2024 1 [place] [id number] Vidhya Aldrich Workirvin [id number] Vihdya Workman Notes Date Note Type Note Provider Name and Address Organization Details Recorded Time 4 text/html 28-year-old female seen in the office today for an acute visit for muscle twitching.Patient states that yesterday she noticed twitching to the right side of her neck. Patient states this has been going on for approximately 1 week. Patient did take a video of the muscle twitching in the right sternocleidomastoid muscle. Patient states she notices it mostly when she is sitting down but denies any pain or tightening. Patient states that the only change in supplement is a preworkout that has creatinine and caffeine but does admit to using a lot of caffeine throughout the day. Patient denies any other supplements at this point. Patient denies any other symptoms as discussed including presyncope, blurry vision, changes in balance, changes in urinary frequency or urge. Hema Parnell, DO [address], [place], [address], [place] - [facility] 02/26/2024 13:12:03 4 text/html 28 yr old female who presents to the office with concerns ofheadaches x about 3 months, feels like pressure and random throbbing, pt states she has noticed some vison changes.pt states was told she had pleurisy last fall, states she feels the same, no improvement when breathing IN, feels like she has to cough a lot. had pfts completedpt states her right neck twitches, states is annoying and you can see when its happening and it comes and goes. pt states she has cut back on pre workout supplement and it is not as often but it still happening. Florencio Erazo, SPREADER OPERATOR [employer] [address], [place], [address], [place] - [facility] 03/07/2024 16:21:20 4 text/html 29-year-old female seen in the office today for an acute visit for neck pain.Patient states that she has been having neck and head pain for the last 2 weeks. Patient denies any injury and denies any radicular symptoms down into her arms. Patient states is worse with driving and laying in bed and she is unsure what makes it better. Patient describes it 5-6 out of 10 today. Hema Parnell DO [address], [place], [address], [place] - [facility] 09/15/2024 13:28:43 5 text/html Annual - MOBReported bypatient.History:Last annual exam: 03/09/23 Current Contraception: control not practiced; Monogamous relationship Preventive measures:Encourage self breast examination; Encourage regular exercise; Encourage no tobacco useNotes:Vidhya rto for AWE. She c/o cycles being different . She states she has a period monthly, just not the same time every month.She doesn't think she has had Gardasil, but is going to check with her mother. Discussed. She will call if she desires vaccination series. Kiera No, SPREADER OPERATOR [employer] [address], [place], [address], [place] [facility] 12/13/2024 14:35:20 5 text/html 29-year-old female seen in the office today for an [...] getting worse with moving her neck. Hema Parnell DO [address], [place], [address], [place] - [facility] 03/29/2025 11:10:46 OBGyn Episode No OBEpisode recorded.
--- OUTSIDE RECORDS SUMMARY | 2025-05-02 13:37 | XMS_ITS | Patient Health Record ---
Author Organization [facility] Address [address] [facility] [address] [place] [address] Care Team Providers Care Industrial Laborer Name Role Phone Maryan Castro Unavailable [phone] Americo Perrin Unavailable [phone] Allergies Allergen (clinical drug ingredient) Drug/Non Drug Allergy documented on EMR Reaction Allergy Type Onset Date Status Substance with sulfonamide structure and antibacterial mechanism of action (substance) Sulfa Antibiotics Unknown Drug Allergy Active Results Component Value Reference Range Flag Notes CT/NG/Angela/BV/Trich (Apti ma) Reviewed date:01/23/2025 03:01:06 PM Interpretation:Abnormal Performing Lab:[facility] - [place]ES[place] CLIA ID [id number], [address] [facility], [address], [place] [address], Director - Emanuel Thrasher MD Notes/Report: Chlamydia Trachomatis Negative Negative Neisseria Gonorrhoeae Negative Negative Bacterial Vaginosis Negative Negative The Aptima BV assay is a real time NAAT TMA assay developed for use on the automated [employer] system that detects and discriminates RNA markers from the Lactobacillus species group (L. gasseri, L. crispatus and L. jensenii), Gardnerella vaginalis, and Atopobium vaginae. The Aptima BV assay uses an algorithm for bacterial vaginosis based on detection of target organisms. Angela species Positive Negative A The CV Assay is a real time TMA assay developed for use on the automated [place] system that detects following Angela species organisms (C. albicans, C. tropicalis, C. parapsilosis, C. dubliniensis), but the assay does not differentiate among C spp. Angela glabrata Negative Negative Trichomonas Negative Negative Reason For Referral No Information Medications Medication SIG (Take, Route, Frequency, Duration) Notes Start Date End Date Status Albuterol Active Fluconazole 150 MG Tablet 1 tablet Orall y once; Duration: 1 days 01/20/2025 Active Social History Tobacco Use: Social History Observation Description Date Details (start date - stop date) Never Smoker NA - NA Sex Assigned At : Social History Observation Description Sex Assigned At Female Social History Drugs/Alcohol: Social Info Question Answer Notes Drugs Have you used drugs other than those for medical reasons in the past 12 months? Marijuana, used to smoke frequently, haven't for about 6-7 years Drug/Alcohol: Social Info Question Answer Notes AUDIT-C (Standard) Did you have a drink containing alcohol in the past year? Yes Tobacco Use: Social Info Question Answer Notes Tobacco Control (Standard) Tobacco use: Nonsmoker Additional Details Category Social Info Options Details Miscellaneous: Domestic violence: No Caffeine: CAFFEINE USE: 3 Do you have any orthodoxy, m oral, or cultural beliefs or customs that your provider should know about? No Would you object to blood products in the event of an emergency? No Problems Problem Type SNOMED Code ICD Code Onset Dates Problem Status W/U Status Risk Notes Problem Herpes simplex viral infection (73659310) HSV infection (B00.9) Active confirmed Problem Cyst of ovary (30873461) Unspecified ovarian cysts (N83.20) 2 Active confirmed OVARIAN CYST Vital Signs Blood pressure diastolic 82 mm Hg 01/17/2025 Height 5ft 9 in in 01/17/2025 Blood pressure systolic 120 mm Hg 01/17/2025 Weight 168 lbs 01/17/2025 BMI 24.81 kg/m2 01/17/2025 Encounters Encounter Location Date Provider Diagnosis [facility] [address] [facility] [place] [address] 01/20/2025 Americo Perrin [facility] [address] [facility] [place] [address] 01/17/2025 Americo Perrin Acute vaginitis N76.0 and HSV infection B00.9 Assessments Encounter Date Diagnosis (ICD Code) Assessment Notes Treatment Notes Treatment Clinical Notes Section Notes 01/17/2025 HSV infection (ICD-10 - B00.9) Thoroughly discussed genital HSV. Informed patient that HSV is a virus that is spread through sexual contact. The virus can be spread even where there is not a present outbreak, it passes through a break in the skin. Many people infected with HSV have no symptoms. Explained that there is no cure for genital HSV, however oral medications are available to control the course of the disease. Discussed episodic treatment versus daily suppression treatment. Pt denies treatment for now as sores are healing up and no longer painful. 01/17/2025 Acute vaginitis (ICD-10 - N76.0) Plan Of Treatment No Information Insurance Providers Payer Name Payer Address Payer Phone Subscriber Number Group Number Insured Name Patient Relationship to Insured Coverage Start Date Coverage End Date [facility] [address] [place], [place] [id number] Vidhya Kaiser Self - patient is the insured Medical (General) History Medical History History ICD Code Yeast infections MENSTR FLOW: Medium Medical History: Lung Problems Surgical History Surgery Date(Month/Year) Ovarian cyst removal 2005
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
--- NOTE | 2025-05-02 14:13 | PC.NURSE ---
eye flushed out.
--- NOTE | 2025-05-02 14:13 | PC.NURSE ---
Carina filled out outpatient order for Rabies vaccines. Called and spoke with Olga, Infusion Charge on patient coming for infusions. Pt given information on day and time for infusions.
[2025-05-02] MEDS: RABIES VACCINE (PCEC)/PF 2.5 UNIT VIAL IM (14:14)
[2025-05-02 14:29] VITALS: BP 130/66; PULSE 81; RESP 18; TEMP 36.9; O2SAT 98
== END 2025-05-02 14:29 | disposition home or self-care (01) ==
PROVIDERS: Emergency Provider Student in an Organized Health Care Education/Training Program; PCP Family Medicine
DX: Z20.3 Contact with and (suspected) exposure to rabies (principal); Z23 Encounter for immunization; W55.89XA Other contact with other mammals, initial encounter
CPT/HCPCS: 90471; 90675; 99283

== ENCOUNTER 2025-05-05 10:03 | Outpatient (CLI) | payer OTHER, SELFPAY ==
--- OUTSIDE RECORDS SUMMARY | 2025-05-05 10:08 | XMS_ITS | Clinical Summary ---
Author Organization [facility] Address [address] [place] [address] Care Team Providers Care Watch Supervisor Name Role Phone Unavailable Primary Care Provider [...] 3-dose series) 2014 UKY-Pap Smear 2016 09/16/2006 [id number] Vaccine (3 - 2023- season) 2024 08/10/2021, [...] Narrative SUNQUEST - 09/18/2006 4:41 PM EST [facility] MR #: [id number] [facility] [address], [place] [address] 1995 (Age: 11) F Collect Date: 09/16/2006 00:00 Receipt Date: 09/17/2006 08:25 Page 1 DEPARTMENT OF PATHOLOGY AND LABORATORY MEDICINE CYTOPATHOLOGY REPORT Email: [email or web address] [phone] ATTENDING MD/Practitioner: Noel Jesus MD Service: PDS [...] 620.2 OVARIAN CYST NEC NOS F: A; 09906 SNOMED CODES: A; J86414 X20290 R11946 [id number] A resident has participated in this service. A pathologist has performed and is responsible for the reported pathologic evaluation. us Historical Provider MD LAB PATHOLOGY ORDERABLES Final Result SUNQUEST from Last 3 Months or Most Recently Relevant to Health Maintenance Insurance
--- OUTSIDE RECORDS SUMMARY | 2025-05-05 10:08 | XMS_ITS | Patient Health Record ---
Author Organization [facility] Address [address] [facility] [address] [place] [address] Care Team Providers Care Sales Donor Recruitment Representative Name Role Phone Maryan Castro Unavailable [phone] Americo Perrin Unavailable [phone] Allergies Allergen (clinical drug ingredient) Drug/Non Drug Allergy documented on EMR Reaction Allergy Type Onset Date Status Substance with sulfonamide structure and antibacterial mechanism of action (substance) Sulfa Antibiotics Unknown Drug Allergy Active Results Component Value Reference Range Flag Notes CT/NG/Angela/BV/Trich (Apti ma) Reviewed date:01/23/2025 03:01:06 PM Interpretation:Abnormal Performing Lab:[facility] - NEMESIO CLIA ID [id number], [address], [address], [place] [address], Director - Emanuel Thrasher MD Notes/Report: Chlamydia Trachomatis Negative Negative Neisseria Gonorrhoeae Negative Negative Bacterial Vaginosis Negative Negative The Aptima BV assay is a real time NAAT TMA assay developed for use on the automated [place] system that detects and discriminates RNA markers from the Lactobacillus species group (L. gasseri, L. crispatus and L. jensenii), Gardnerella vaginalis, and Atopobium vaginae. The Aptima BV assay uses an algorithm for bacterial vaginosis based on detection of target organisms. Angela species Positive Negative A The CV Assay is a real time TMA assay developed for use on the automated [place] system that detects following Angela species organisms [...] CAFFEINE USE: 3 Do you have any restorationist, m oral, or cultural beliefs or customs that your provider should know about? No Would you object to blood products in the event of an emergency? 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 [address] [place] [address] 01/20/2025 Americo Perrin [facility] [address] [place] [address] 01/17/2025 Americo Perrin Acute vaginitis N76.0 and [...] Insured Coverage Start Date Coverage End Date [facility] [address] [place], [place] [id number] Vidhya Kaiser Self - patient is the insured Medical (General) History Medical History History ICD Code Yeast infections MENSTR FLOW: Medium Medical History: Lung Problems Surgical History Surgery Date(Month/Year) Ovarian cyst removal 2005
--- OUTSIDE RECORDS SUMMARY | 2025-05-05 10:08 | XMS_ITS | Continuity of Care Document ---
[facility] Address [address] [place] [address] Assessment No assessment recorded. Plan of Treatment Reminders Order Date Submit Date Provider Last Modified By Organization Details Last Modified Time Details Appointments None recorded. Lab rapid strep group A, throat 025 [facility], [address] [place], [address], 5 10:50:07 dayna moreno virus Ab panel, serum 025 [facility], [address], [place], [address], 5 14:37:33 TSH, ultra-sen sitive, serum 025 025 [facility], [address], [place], [address], 5 14:37:34 CBC w/ auto diff 025 025 [facility], [address], [place], [address], 5 14:37:32 Referral None recorded. Procedures None recorded. Surgeries None recorded. Imaging US, thyroid 025 [facility], [address] [place] [address] , [place], [address], 08:02:32 Medication Orders None recorded. Patient TargetsNo targets recorded. Patient InstructionsNo instructions recorded. Reason for Referral None Reported. Results Created Date Observation Date Name Description Value Unit Range Abnormal Flag Note LastModifiedBy Organization Detail LastModifiedTime 03/29/2003/29/2025 rapid strep group A, throa t Strep negati ve Not Available [facility] [address] [place], [place] [address] [place], [address], 03/28/2025 09:29:10 03/29/20 25 03/29/2025 rapid strep group A, throa t Culture No Not Available [facility] [address] [place], [place] [address] [place], [address], 03/28/2025 09:29:10 04/04/20 [place], thyro id No observ ation record ed. [address] , [place], [address], 04/06/2025 15:02:54 Result Notes None recorded. Problems Name Problem SNOMED Code Status Onset Date Resolution Date Notes Provider Name and Address Organization Details Recorded Time Mastodyni a of bilateral breasts 976810768364 41357 Completed 202203/10/2023 Kiera No APRN [address], [place], [address], [place] - [facility] 3 22:42:04 Fibrocyst ic changes of bilateral breasts 458247154830 01219 Active 2022 Christina Agarwal APRN [address], [place], [address], [place] - [facility] 3 13:53:12 Body mass index 25-29 - overweigh t 963542771 Completed 202212/13/2024 Kiera No APRN [address], [place], [address], [place] - [facility] 5 14:33:46 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 620678095 Active 2022 Christina Stefano, [employer] [address], [place], [address], [place] - [facility] 3 13:19:45 Tendernes s of breast 45734228 Completed 202212/12/2024 Kiera No, [employer] [address], [place], [address], [place] [facility] 5 15:33:26 Acute sinusitis 53307674 Completed 202212/12/2024 Josey Abbott null, [place] - [facility] 5 15:01:00 Laborator y test result abnormal 554234569 Active 2022 Hema Alexander, DO [address], [place], [address], [place] [facility] 3 08:50:30 Cough 87547617 Completed 202212/12/2024 Josey Abbott null, [place] - [facility] 5 15:01:04 Tension-t ype headache 205864869 Active 2022 Hema Soheila, DO [address], [place], [address], [place] [facility] 3 11:20:15 Benign fascicula tion-cram p syndrome 569971817 Active 2023 Hema Soheila, DO [address], [place], [address], [place] [facility] 4 13:05:16 Neck pain 93529635 Active 2023 Hema Soheila, DO [address], [place], [address], [place] [facility] 4 13:24:02 Irregular periods 43545523 Active 2024 Kiera No, [employer] [address], [place], [address], [place] [facility] 5 15:33:36 Body mass index 20-24 - normal 482950267 Active 2024 Kiera No, [employer] [address], [place], [address], [place] - [facility] 5 14:33:38 Chronic sore throat 801715242 Active 2024 Hema Parnell DO [address], [place], [address], [place] - [facility] 5 09:29:03 Problem Notes None recorded. Procedures Surgical History Date Name Laterality Status Provider Name and Address Organization Details Recorded Time 5 Date of Last Pap Smear completed Kiera No, [employer] [address], [place], [address], [place] - [facility] 12/14/2024 13:22:07 Removal of ovarian cyst(s) completed Josey Abbott [place] - [facility] 01/21/2023 08:37:34 Imaging Results None recorded. Procedure Notes None recorded. Medical Equipment None Reported. Allergies Allergen ID Allergen Name Allergen Category Reaction Reaction Severity Criticality Documentation Date Start Date Code Code System Note Provider Name and Address Organization Details Recorded Time 816835 Substance with sulfonami de structure and antibacte rial mechanism of action (substanc e) medicatio n rash Not available Not available 01/21/2023 60658 8003 SNOMED Josey Abbott [place], [place] - [facility] 3 08:32:22 Medications Name [...] propionate 50 mcg/actuati on nasal spray,suspe nsion [place] 1 spray twice a day by intranasa [...] % 98.2 [degF] 18 /min 24.7 kg/m2 10437.8 9 g 112/78 mm[Hg] Pasquale Bui [place] - [facility] 5 10:19:55 Social History Question Answer Notes LastModified by Organizat ion Details LastModified Time Tobacco Smoking Status Former Smoker Josey [place], [place] - [facility] 01/21/2023 08:36:25 Do You Have An Advance Directive? No Information not available 03/07/2024 Are You Blind Or Do You Have Difficulty Seeing? No Information not available 06/01/2023 What Is Your Level Of Caffeine Consumption? Heavy [email or web address] Information not available 01/21/2023 In The 14 [...] Or The Highest Degree You Have Received? HF82340-5 [email or web address] Information not available 01/21/2023 Have There Been Any Changes To Your Family Or Social Situation? No Information no t available 06/01/2023 When Did You Quit Smoking? 1-5yearssincelast cigarette [email or web address] Information not available 01/21/2023 Have You Recently Or Are You Planning To Travel To An Area With Zika Virus? No Information not available 05/18/2023 Last Menstrual Period? 11/21/2024 Information not available 12/12/2024 Do You Have A Medical Power Of Pickle Solution Maker? No Information not available 03/07/2024 What Was The Date Of Your Most Recent Tobacco Screening? 03/29/2025 Information not available 03/29/2025 What Is Your Current Pack Years? 10packyears [email or web address] Information not available 01/21/2023 What Is Your Relationship Status? Single [email or web address] Information not available 01/21/2023 Are You Sexually Active? Yes [email or web address] Information not available 01/21/2023 At What Age Did You Start Smoking Tobacco? 18 [email or web address] Information not available 01/21/2023 Has Tobacco Cessation Counseling Been Provided? Yes Information not available 01/20/2024 On What Date Was Tobacco Cessation Counseling Provided? 03/29/2025 Information not available 03/29/2025 How Many Years Have You Smoked Tobacco? 4 [email or web address] Information not available 01/21/2023 Do You Have Difficulty Walking Or Climbing Stairs? No Information not available 06/01/2023 What Contraceptive Method Was Reported At Start Of This Visit? None [email or web address] Information not available 01/21/2023 What Contraceptive Method Was Reported At End Of This Visit? None [email or web address] Information not available 12/12/2024 Do You Want To Talk About Contraception Or Prevention During Your Visit Today? No - I Do Not Want To Talk About Contraception Today Because I Am Here For Something Else [email or web address] Information not available 01/21/2023 Do You Have Any Future Plans To Get ? I'm OK Either Way Information no t available 01/21/2023 Sex: Female Functional Status Question Answer Note LastModified by Luminate[employer] ion Details LastModified Time How many times per week do you consume alcohol? Less than 1 time per week Information not available 01/20/2024 Do you use any illicit or recreational drugs? No Information not available 01/21/2023 Do you or have you ever used any other forms of tobacco or nicotine? No [email or web address] Information not available 01/21/2023 What is your level of alcohol consumption? Occasional [email or web address] Information not available 01/21/2023 Are you currently employed? Yes [email or web address] Information not available 01/21/2023 Do you have transportation difficulties? No Information not available 06/01/2023 What is your status? Not [email or web address] Information no t available 01/21/2023 Are you able to walk? YESWOREST Information not available 06/01/2023 Do you have difficulty doing errands alone? No Information not available 06/01/2023 Are you able to care for yourself? 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 [email or web address] Information not available 01/21/2023 Do you have [...] Details LastModified Time Maternal Grandmother Anxiety disorder [email or web address] Not available 2022 08:34:31 Maternal Grandmother Depressive disorder [email or web address] Not available 2022 08:34:37 Maternal Grandmother Diabetes mellitus [email or web address] Not available 2022 08:34:54 Maternal Grandmother Malignant tumor of breast [email or web address] Not available 2022 08:35:14 Maternal Grandfather Myocardial infarction [email or web address] Not available 01/21 08:34:48 Paternal Grandfather Malignant neoplasm of lung [email or web address] Not available 2022 08:35:08 Sister Graves' disease [email or web address] Not available 2024 15:20:48 Maternal Aunt Graves' [...] colitis N Cerebrovascular Disease N Depression N Guillain-[place] N Sleep Apnea N Aneurysm N Bronchitis [...] SNOMED-CT Code Diagnosis ICD10 Code Diagnosis Note [id number] Hema Parnell DO [place] [address] [place] [address] 03/29/2025 09:58:31 03/29/2025 10:54:51 Chronic sore throat [id number] J31.2 Throat pain. Patient had negative strep [...] neck. Hema Parnell, DO [address], [place], [address], [place] - [facility] 03/29/2025 11:10:46 OBGyn Episode No OBEpisode recorded.
--- OUTSIDE RECORDS SUMMARY | 2025-05-05 10:08 | XMS_ITS | Data Portability ---
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 Grandmother Depressive disorder Not available 2022 08:34:37 Maternal Grandmother Diabetes mellitus Not available 2022 08:34:54 Maternal Grandmother Malignant tumor of breast [email or web address] Not available 2022 08:35:14 Maternal Grandfather Myocardial infarction [email or web address] Not available 01/21 08:34:48 Paternal Grandfather Malignant neoplasm of lung [email or web address] Not available 2022 08:35:08 Sister Graves' disease [email or web address] Not available 2024 15:20:48 Maternal Aunt Graves' disease [email or web address] Not available 2024 15:20:48 Medical History Condition [...] colitis N Cerebrovascular Disease N Depression N Guillain-[place] N Sleep Apnea N Aneurysm N Bronchitis [...] 30 mcg/0.3 mL dose 08/10/2021 completed Josey Abbott null, [place] - [facility] 01/21/2023 08:24:42 Past Encounters Encounter ID Performer Location Encounter Start Date Encounter Closed Date Diagnosis/Indication Diagnosis SNOMED-CT Code Diagnosis ICD10 Code Diagnosis Note [id number] ELAINE Marroquin [employer] [address] [place] [address] [place] [address] 01/21/2023 08:15:14 01/21/2023 08:56:41 Mastodynia of bilateral breasts [id number] 7298071 N64.4 Fibrocysti c changes of bilateral breasts 7138705461 2816602 N60.11 N60.12 [id number] ELAINE Marroquin [employer]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 Diet education 99461392 Z71.3 Counseling 176207522 Z71 .82 Exercise counselkeny quintana Patient encouraged to exercise 30 minutes 5 days a week. Examinatio n of blood pressure 107484684 Z01.30 Hypertensi on screening 760952992 Z13.6 Screening for malignant neoplasm of cervix 403374258 Z12.4 Body mass index 25-29 - overweight 062536835 Z68.25 Overweight 069286833 E66 .3 Fibrocysti c changes of bilateral breasts 8727896385 6513575 N60.11 N60.12 [id number] ELAINE Daniel [employer] LOGIST[employer] MA[employer]GER [address] [place] [address] [place] [address] 04/16/2023 13:36:33 04/16/2023 14:04:00 Vaginal discharge problem 452719217 N89.9 [id number] Florencio Erazo [address] [address] 05/18/2023 14:19:54 05/18/2023 15:46:12 Muscle tender point 726036538 R29.898 Fatigue 71211016 R53.83 return 2 weeks for review of labs and treatment plan Tick bite 37628640 W57.X XXA Cramp 47477394 R25.2 Disorder o f thyroid gland 49881653 E07.9 [id number] Florencio Erazo [address] [address] 05/21/2023 11:07:32 05/21/2023 12:04:12 Cat bite - wound 810217230 T14.8XXA keep areas clean and dryapply creamwatch for s/s of infectionr eturn if any worsening or no improvemen t [id number] ELAINE Daniel [employer] LOGIST[employer] MA[employer]GER [address] [place] [address] [place] [address] 05/29/2023 13:59:48 05/29/2023 14:36:24 Tenderness of breast 82050632 N64.4 [id number] Florencio Erazo [address] [address] 06/01/2023 08:58:07 06/01/2023 09:43:30 Muscle pain 66549606 M79.10 will repeat all labs first of octreturn if any concerns [id number] Gerda Montenegro [facility] [address] [place] [address] 07/03/2023 09:40:36 07/03/2023 10:28:49 Strain of neck muscle 762684330 S16.1XXA [id number] Florencio Erazo [address] [address] 07/14/2023 14:37:42 07/14/2023 15:10:15 Strain of neck muscle 482319114 S16.1XXA follow up if no improvemen t [id number] Vernon Yee [address] [address] 07/24/2023 08:41:17 07/24/2023 09:07:31 Acute sinusitis 20938569 J01.90 Patient likely has an acute bacterial [...] reviewed appropriat e doses.Foll ow-up as below. [id number] Florencio Erazo [address] [address] 08/11/2023 11:24:55 08/11/2023 12:00:49 Tick bite 89609802 W57.XXXA Lupus anti coagulant disorder 59876632 D68.62 recheck labs [id number] Hema Parnell DO [address] [place] [address] 08/14/2023 10:55:25 08/14/2023 11:51:18 Cough 32008810 R05.9 Cough. Episodic. Chest x-ray reviewed and discussed with patient in detail. Patient will also have CBC and procalcito ant ordered today to assess. Patient will also have BELKIS level obtained. Patient will be given albuterol for symptom control as well as a 5-day course of prednisone . Tension-type headache 39 3888400 G44.209 Headache, tension. Differenti al diagnosis and usual treatment options discussed with patient in detail. Patient will be referred to physical therapy for cervical range of motion as well as local therapy to the cervical spine and posterior head musculatur e. Laboratory test result abnormal 860053636 R89.9 Lupus anticoagul ant panel abnormal. Patient recently had repeat labs drawn will await results for recommenda tions for further work-up. [id number] Hema Parnell [address] [place] [address] 01/20/2024 14:02:11 01/20/2024 14:23:58 Cough 99690389 R05.9 Cough. Concerns for asthma, patient will have pulmonary function test ordered today. Patient will also be given prednisone for 5 days and an albuterol inhaler to use as needed. Tension-type headache 39 8987532 G44.209 Headache, tension. Differenti al diagnosis and usual treatment options discussed with patient in detail. Body mass index 25-29 - overweight 230092853 Z68.25 Overweight 111327368 E66 .3 [id number] Hema Parnell [address] [place] [address] 02/26/2024 12:42:29 02/26/2024 13:15:47 Body mass index 25-29 - overweight 595875839 Z68.25 Benign fasciculation-cramp syndrome 784455126 R25.3 Benign fasciculat ion syndrome. Differenti al diagnosis and usual workup and treatment discussed with patient in detail. Patient was also warned about warning signs and when to reappoint herself. Patient will have CMP obtained today to assess for electrolyt e abnormalit y as a cause for the fasciculat ion. Will consider further workup if symptoms do not improve or change. [id number] Florencio Erazo APRN [address] [address] 03/07/2024 13:38:07 03/07/2024 14:18:54 Frequent headache 049459049 R51.9 due to vison issues, padilla not improving with tylenol,mo carri, or resting will obtain ct while waiting on neurology appointmen t Dyspnea 288695673 R06.00 [id number] Hema Parnell [address] [place] [address] 09/15/2024 12:59:41 09/15/2024 13:54:12 Body mass index 20-24 - normal 458576396 Z68.24 Neck pain 99197052 M54.2 Cervicalgi a. Discussed usual presenting diagnosis [...] if symptoms do not improve or worsen. 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 Diet education 45746046 Z71.3 Counseling 909675828 Z71 .82 Exercise counselkeny quan. Patient encouraged to exercise 30 minutes 5 days a week. Examinatio n of blood pressure 364145691 Z01.30 Hypertensi on screening 720927459 Z13.6 Body mass index 20-24 - normal 317226446 Z68.24 Vaccination declined 627 0249873 Z28.21 Seasonal flu vaccine offered and declined Irregular periods 477359 07 N92.6 Fibrocysti c changes of bilateral breasts 2648081506 4301614 N60.11 N60.12 Screening for malignant neoplasm of cervix 451851300 Z12.4 Immunization advised 310 497609 Z71.9 [id number] Hema Parnell DO [facility] [address] [place] [address] 03/29/2025 09:58:31 03/29/2025 10:54:51 Chronic sore throat 810143104 J31.2 Throat pain. Patient had negative strep [...] PAY* Tavares Kaiser 09/15/2024 1 [employer] [id number] Q Vidhya Aldrich Workirvin [id number] Vidhya Workman Notes Date Note Type Note [...] urge. Hema Parnell, DO [address], [place], [address], [place] - [facility] 02/26/2024 13:12:03 4 text/html [...] often but it still happening. Florencio Erazo, FINANCIAL DIRECTOR [address], [place], [address], [place] - [facility] 03/07/2024 16:21:20 4 text/html [...] today. Hema Parnell DO [address], [place], [address], [place] - [facility] 09/15/2024 13:28:43 5 text/html Annual - MOBReported bypatient.History:Last annual exam: 03/09/23 Current Contraception: control not practiced; Monogamous relationship Preventive measures:Encourage self breast examination; Encourage regular exercise; Encourage no tobacco useNotes:Vidhya valenzuelao for [employer]WE. She c/o cycles being different . She states she has a period monthly, just not the same time every month.She doesn't think she has had Gardasil, but is going to check with her mother. Discussed. She will call if she desires vaccination series. Kiera No, FINANCIAL DIRECTOR [address], [place], [address], [place] - [facility] 12/13/2024 14:35:20 5 text/html [...] neck. Hema Parnell DO [address], [place], [address], [place] - [facility] 03/29/2025 11:10:46 OBGyn Episode No OBEpisode recorded.
--- OUTSIDE RECORDS SUMMARY | 2025-05-05 10:08 | XMS_ITS | Data Portability ---
Author Organization [facility], [facility] Address [address] [place] [address] Care Team Providers Care Web Retailer Name Role Phone FELIX SASKIA Primary Care Provider Assessment Encounter Date Assessment Date Assessment LastModified [...] for use 3. Order RAST/CBC/IgE (sent to [facility]) 4. Advised to avoid known triggers 5. [...] pleurisy 4. Seasonal allergies *RAST Panel (2024): +South Korean elm tree *IgE: 65 *EOS: 70 Plan [...] recognition software and or use of a biomedical repair technician. Variances in spelling and vocabulary are possible [...] pleurisy 4. Seasonal allergies *RAST Panel (2024): +[place] elm tree *IgE: 65 *EOS: 70 Plan [...] of the telehealth visit process by this data analyst report writer. Telehealth was described to patient as [...] visit via technology based communication. Provider Location: [place] Office Patient Location: Patients Car Start Time:1359 Stop Time:1403 Total clinician time spent on date of this encounter is 30 minutes. Portions of this note may be dictated using voice recognition software and or use of a biomedical repair technician. Variances in spelling and vocabulary are possible [...] pleurisy 4. Seasonal allergies *RAST Panel (2024): +[place] elm tree *IgE: 65 *EOS: 70 Plan Order CXR (sent to [facility]) RX Z gera as directed 1. Patient [...] recognition software and or use of a biomedical repair technician. Variances in spelling and vocabulary are possible [...] Modified Time Details Appointments None recorded. Lab CBC w/ diff 2023 024 [email or web address] [facility] (Registration ), [address] [place] [address] , [place], [address], 4 08:35:23 respiratory allergen panel - [facility] - TEST FOR ZONE 5 2023 024 [facility] (Registration ), [address] [place] [address] Estefania Coleman, [place], [address], 4 08:38:54 Referral None recorded. Procedures None recorded. Surgeries None recorded. Imaging XR, chest, 2 view 2024 025 [facility] (Registration ), [address], [place], [address], 5 16:27:38 Medication Orders Zithromax Z-Gera 250 mg tablet 2024 025 [facility] [id number], [address] [facility] , [place], [address], 5 13:55:30 albuterol sulfate HFA 90 mcg/actuati on aerosol inhaler 2024 025 [facility] [id number], [address] [facility] , [place], [address], 5 13:55:32 albuterol sulfate HFA 90 mcg/actuati on aerosol inhaler 2023 024 [facility] [id number], [address] [facility] , [place], [address], 4 15:56:58 Patient TargetsNo targets recorded. Patient InstructionsNo instructions recorded. Reason for Referral None Reported. Results Created Date Observation Date Name Description Value Unit Range Abnormal Flag Note LastModifiedBy Organization Detail LastModifiedTime 04/08/20 24 2024 fract ional exhal ed nitri c oxide * No observ ation record ed. Not Available 2023 13:25:03 04/08/20 24 04/08/2024 compl ete PFT w/ post [facility] hodil ator rafael metry * No observ ation record ed. [email or web address] Not Available 2023 15:41:37 04/08/20 24 08/14/2023 XR, chest , 2 view No observ ation record ed. [email or web address] Not Available 2023 15:52:59 11/09/19 25 11/09/2024 XR, chest , 2 view No observ ation record ed. [email or web address] [place] [address] [address] , [place], [address], 11/10/2024 11:16:51 11/14/19 25 11/09/2024 compl ete PFT* No observ ation record ed. [email or web address] Not Available 2024 16:08:27 Result Notes None recorded. Problems Name Problem SNOMED Code Status Onset Date Resolution Date Notes Provider Name and Address Organization Details Recorded Time Overweight 808599622 Active 2023 david tuel null, [place] - [facility] 4 09:35:25 Tension-typ e headache 058615477 Active 2023 david tuel [place] - [facility] 4 09:35:39 Benign fasciculati on-cramp syndrome 034747457 Active 2023 david tuel null[place] - [facility] 4 09:36:37 Acute sinusitis 41044305 Active 2023 david tuel null[place] - [facility] 4 09:36:53 Tenderness of breast 70113594 Active 2023 david tuel null[place] - [facility] 4 09:37:25 Cough 30894325 Active 2023 david tuel null[place] - [facility] 4 09:37:38 Fibrocystic changes of bilateral breasts 4589797364281 9105 Active 2023 david tuel null, [place] - [facility] 4 09:38:13 Mycoplasma species or Ureaplasma urealyticum 023998842 Active 2023 david tuel null[place] - [facility] 4 09:39:21 Frequent headache 936119002 Active 2023 david tuel null[place] - [facility] 4 09:40:25 Dyspnea 183552416 Active 2023 david tuel null[place] - [facility] 4 09:40:38 Seasonal allergy 258961702 Active 2023 Mirlande Chin NP [address], [place], [address], [place] - [facility] 4 15:55:38 Pleurisy 434367765 Active 2023 Mirlande Chin NP [address], [place], [address], [place] - [facility] 4 18:32:17 Reactive airway disease 881394165608 Active 2023 Mirlande Chin NP [address], [place], [address], [place] - [facility] 4 14:42:18 Upper respiratory infection 73756840 Active 2024 Mirlande Chin NP [address], [place], [address], [place] - [facility] 5 13:54:12 Problem Notes None recorded. Procedures Surgical History Date Name Laterality Status Provider Name and Address Organization Details Recorded Time Removal of ovarian cyst(s) completed brady preston [place] - [facility] 2024 15:35:20 Imaging Results None recorded. Procedure Notes None recorded. Medical Equipment None Reported. Allergies Allergen ID Allergen Name Allergen Category Reaction Reaction Severity Criticality Documentation Date Start Date Code Code System Note Provider Name and Address Organization Details Recorded Time 28257 Substance with sulfonami de structure and antibacte rial mechanism of action (substanc e) medicatio n Not available Not available Not available 03/24/2024 88970 8003 SNOMED david [place] [facility] 09:34:30 Medications Name [...] puff every day by inhalatio n route. 11/09 completed Not Available Not Available Not Available [...] Pulse oximetry Heart rate Body temperature Systolic And Diastolic Provider Name and Address Organization Details Last Updated DateTime 5 175.26 cm 25.1 kg/m2 98718.7 g 96 % 96 % 76 /min 98 [degF] 112/62 mm[Hg] [facility] 5 13:46:48 Date Recorded Body weight Body mass index (BMI) Body height Oxygen saturation Oxygen saturation in Arterial blood by Pulse oximetry Heart rate Respiratory rate Body temperature Systolic And Diastolic Provider Name and Address Organization Details Last Updated DateTime 4 86373.6 6 g 25.8 kg/m2 175.26 cm 100 % 100 % 75 /min 18 /min 98.6 [degF] 122/74 mm[Hg] brady preston [facility] 4 15:32:38 Date Recorded Body height Body mass index (BMI) Body weight Oxygen saturation Oxygen saturation in Arterial blood by Pulse oximetry Heart rate Respiratory rate Body temperature Systolic And Diastolic Provider Name and Address Organization Details Last Updated DateTime 4 175.26 cm 25.8 kg/m2 80007.6 6 g 100 % 100 % 55 /min 16 /min 97.5 [degF] 102/70 mm[Hg] david gabriel [facility] 4 14:42:30 Social History Question Answer Notes LastModified by Organization Details LastModified Time Tobacco Smoking Status Former Smoker brady preston [facility] 04/01/2024 11:56:21 Do You Have An Advance Directive? No [email or web address] Information not available 04/01/2024 Is Your Home Air Conditioned? Yes [email or web address] Information not available 2024 When Did You Quit Smoking? 1-5yearssincelast cigarette [email or web address] Information not available 04/01/2024 Where Do You Live? [facility] [email or web address] Information not available 2024 Do You Have A Medical Power Of Storm Window Installer? No [email or web address] Information not available 04/01/2024 What Was The Date Of Your Most Recent Tobacco Screening? 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 10-19packyears [email or web address] Information not available 04/01/2024 Do You Have Any Pets? Yes 5 Cats, 2 Dogs [email or web address] Information not available 2024 What Is Your Relationship Status? Single [email or web address] Information not available 04/01/2024 At What Age Did You Start Smoking Tobacco? 18 Information not available 04/01/2024 Are There Any Smokers In Your House? Yes Boyfriend Vapes [email or web address] Information not available 2024 Has Tobacco Cessation Counseling Been Provided? No [email or web address] Information not available 2024 How Many Years Have You Smoked Tobacco? 4 [email or web address] Information not available 04/01/2024 Have You Recently Traveled Abroad? No [email or web address] Information not available 04/01/2024 Are You Currently In School? No Information not available 2024 Sex: Unknown Functional Status Question Answer Note LastModified by Organizat ion Details LastModified Time Do you or have you ever used any other forms of tobacco or nicotine? No [email or web address] Information not available 04/01/2024 Are you currently employed? 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 Family History Relationship Description Onset Age of this Age Resolved Age Notes LastModified by Organization Details LastModified Time Maternal Grandmother Anxiety disorder [email or web address] Not available 04/01 11:58:23 Maternal Grandmother Depressive disorder [email or web address] Not available 04/01 11:58:35 Maternal Grandmother Diabetes mellitus Not available 04/01 11:58:49 Maternal Grandmother Malignant tumor of breast [email or web address] Not available 04/01 11:59:10 Maternal Grandfather Myocardial infarction [email or web address] Not available 03/04 11:59:19 Paternal Grandfather Malignant neoplasm of lung [email or web address] Not available 04/01 11:59:42 Medical History No medical history recorded. Gynecological HistoryNo gynecological history recorded. Obstetrics History GPAL:G 0 P 0 0 0 0 Past Encounters Encounter ID Performer Location Encounter Start Date Encounter Closed Date Diagnosis/Indication Diagnosis SNOMED-CT Code Diagnosis ICD10 Code Diagnosis Note [id number] Mirlande Chin NP [address] [place] [address] [place] [address] 0 2024 15:13:45 04/06/2024 14:47:01 Seasonal allergy 043549832 J30.2 Dyspnea 682699866 R06.00 [id number] Mirlande Chin NP [address] [place] [address] [place] [address] 0 04/28/2024 14:37:56 04/28/2024 15:07:25 Seasonal allergy 723984499 J30.2 Dyspnea 264105753 R06.00 Reactive a irway disease 5832157790 06 J45.909 [id number] Mike Maza DO [address] [place] [address] [place] [address] 0 10/31/2024 13:46:55 10/31/2024 14:22:10 Reactive airway disease 5733042736 06 J45.909 Seasonal allergy 8848742 04 J30.2 Dyspnea 328879104 R06.00 [id number] Mike Maza DO [address] [place] [address] [place] [address] 0 11/09/2024 13:12:17 11/09/2024 14:24:24 Reactive airway disease 4019114880 06 J45.909 Seasonal allergy 7584352 04 J30.2 Dyspnea 874491247 R06.00 Upper resp iratory infection 82066021 J06.9 Health Concerns Section Related Observation LastModified by Organization Detai ls LastModified Time None Recorded Concern Status LastModified by Organization Details LastModified Time None Recorded Advance Directives Directive N: Payers Insurance Date Sequence Insurance Name Policy Number Policy Coughlin Covered Member ID Coughlin Member ID Guarantor Name 11/09/2024 1 [place] [id number] Vidhya Workirvin [id number] Vidhya Workirvin 05/02/2025 1 [facility] [id number] Vidhya Workirvin [id number] Vidhya Kaiser Notes Date Note Type Note Provider [...] Chin NP [address], [place], [address], [facility] 04/05/2024 18:33:59 04/28/2024 [...] Chin NP [address], [place], [address], [facility] 04/28/2024 15:15:34 10/31/2024 text/html This is a 29 year-old female who presents to the office today via telemedicine audio/video visit via [facility] for the ongoing management of RAD. Patient [...] Chin NP [address], [place], [address], [facility] 10/31/2024 18:10:47 11/09/2024 [...] Chin NP [address], [place], [address], [facility] 11/09/2024 14:19:08 OBGyn Episode No OBEpisode recorded.
[2025-05-05] MEDS: RABIES VACCINE (PCEC)/PF 2.5 UNIT VIAL IM (10:20)
== END 2025-05-05 10:36 | disposition home or self-care (01) ==
LOC: INF 10:05
PROVIDERS: PCP Nurse Practitioner; Visit Provider Nurse Practitioner
DX: Z29.14 Encounter for prophylactic rabies immune globulin (principal)
CPT/HCPCS: 90675; 96372; 96374

== ENCOUNTER 2025-06-08 10:05 | Outpatient (CLI) | payer OTHER, SELFPAY ==
[2025-06-08] MEDS: RABIES VACCINE (PCEC)/PF 2.5 UNIT VIAL IM (10:12)
--- OUTSIDE RECORDS SUMMARY | 2025-06-08 10:12 | XMS_ITS | Patient Health Record ---
Author Organization [facility] Address [address] [facility] [address] [place] [address] Care Team Providers Care Web Production Artist Name Role Phone Maryan Castro Unavailable [phone] Americo Perrin Unavailable [phone] Allergies Allergen (clinical drug ingredient) Drug/Non Drug Allergy documented on EMR Reaction Allergy Type Onset Date Status Substance with sulfonamide structure and antibacterial mechanism of action (substance) Sulfa Antibiotics Unknown Drug Allergy Active Results Component Value Reference Range Flag Notes CT/NG/Angela/BV/Trich (Apti ma) Reviewed date:01/23/2025 03:01:06 PM Interpretation:Abnormal Performing Lab:[facility] - NEMES[place] CLIA ID [id number], [address] [facility], [address], [place] [address], Director - Emanuel Thrasher MD Notes/Report: Chlamydia Trachomatis Negative Negative Neisseria Gonorrhoeae Negative Negative Bacterial Vaginosis Negative Negative The Aptima BV assay is a real time NAAT TMA assay developed for use on the automated Hansen system that detects and discriminates RNA markers from the Lactobacillus species group (L. gasseri, L. crispatus and L. jensenii), Gardnerella vaginalis, and Atopobium vaginae. The Aptima BV assay uses an algorithm for bacterial vaginosis based on detection of target organisms. Angela species Positive Negative A The CV Assay is a real time TMA assay developed for use on the automated Hansen system that detects following Angela species organisms [...] CAFFEINE USE: 3 Do you have any confucianist, m oral, or cultural beliefs or customs that your provider should know about? No Would you object to blood products in the event of an emergency? 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 [place] [address] 01/20/2025 Americo Perrin [facility] [place] [address] [facility] [place] [address] 01/17/2025 Americo Perrin Acute vaginitis N76.0 and [...] Insured Coverage Start Date Coverage End Date [facility] [address] [place], [place] [id number] Vidhya Kaiser Self - patient is the insured Medical (General) History Medical History History ICD Code Yeast infections MENSTR FLOW: Medium Medical History: Lung Problems Surgical History Surgery Date(Month/Year) Ovarian cyst removal 2005
--- OUTSIDE RECORDS SUMMARY | 2025-06-08 10:12 | XMS_ITS | Clinical Summary ---
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 Name Role Phone Unavailable Primary Care Provider [...] 3-dose series) 2014 [facility]-Pap Smear 2016 09/16/2006 OFG-TANGL-55 Vaccine (3 - 2023- season) 2024 08/10/2021, 07/20/2021 [facility]-Cervical Cancer Screening 2025 [facility]-HPV/Cotest 2025 09/16/2006 [facility]-Influenza Vaccine (#1) 2025 [facility]-Zoster Vaccines (1 of 2) 2045 [...] Narrative SUNQUEST - 09/18/2006 4:41 PM EST [facility] MR #: [id number] [facility] [address] [place], [place] [address] 1995 (Age: 11) F Collect Date: 09/16/2006 00:00 Receipt Date: 09/17/2006 08:25 Page 1 DEPARTMENT OF PATHOLOGY AND LABORATORY MEDICINE CYTOPATHOLOGY REPORT Email: [email or web address] ATTENDING MD/Practitioner: Noel Jesus MD Service: PDS [...] 620.2 OVARIAN CYST NEC NOS F: A; 55213 SNOMED CODES: A; N30089 O18979 R51161 O10106 A resident has participated in this service. A pathologist has performed and is responsible for the reported pathologic evaluation. us Historical Provider MD LAB PATHOLOGY ORDERABLES Final Result SUNQUEST from Last 3 Months or Most Recently Relevant to Health Maintenance Insurance
[2025-06-08 10:15] VITALS: BP 121/70; PULSE 62; RESP 20; TEMP 36.6; O2SAT 100
== END 2025-06-08 10:15 | disposition home or self-care (01) ==
LOC: INF 10:06
PROVIDERS: PCP Family Medicine; Visit Provider Nurse Practitioner
DX: Z29.14 Encounter for prophylactic rabies immune globulin (principal)
CPT/HCPCS: 90675; 96372

== ENCOUNTER 2025-06-17 15:50 | Outpatient (CLI) | payer OTHER, SELFPAY ==
--- OUTSIDE RECORDS SUMMARY | 2025-06-17 15:54 | XMS_ITS | Clinical Summary ---
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 Role Phone Unavailable Primary Care Provider [...] of 2 - 13+ 2-dose series) 2008 [facility]- SDOH Screenings 2013 [facility]-Adult SDOH Screenings 2013 [facility]-DTaP,Tdap,and Td Vaccines (1 - Tdap) 2014 [facility]-Hepatitis B Vaccines (1 of 3 - 19+ 3-dose series) 2014 [facility]-Pap Smear 2016 09/16/2006 HPV Vaccines (1 - 3-dose SCDM series) 2022 [facility]K-BRAQK-29 Vaccine (3 - season) 2024 08/10/2021, 07/20/2021 [facility]-Cervical Cancer Screening [...] Narrative SUNQUEST - 09/18/2006 4:41 PM EST [facility] MR #: [id number] [facility] [address] [place] [address] 1995 (Age: 11) F Collect Date: 09/16/2006 00:00 Receipt Date: 09/17/2006 08:25 Page 1 DEPARTMENT OF PATHOLOGY AND LABORATORY MEDICINE CYTOPATHOLOGY REPORT Email: [email or web address] [phone] ATTENDING MD/Practitioner: Noel Jesus MD Service: PDS Location: 4 Reported: 09/18/2006 16:41 Collected: 09/16/2006 00:00 DIAGNOSIS A. OVARIAN CYST FLUID: NO MALIGNANCY IDENTIFIED. LYMPHOCYTES PRESENT. Electronically Signed Out TARAN Davila(ASCP) Giselle Mcelroy MD PROCEDURES/ADDENDA GROSS DESCRIPTION: 50 ml's of tinted fluid. CLINICAL INFORMATION: CLINICAL DIAGNOSIS ovarian cyst, torsed ovary SPECIMEN DESCRIPTION: A: OVARIAN CYST FLUID THIN PREP PROCESS CELLULAR ENHANCEMENT ICD: 620.2 OVARIAN CYST NEC NOS F: A; 08898 SNOMED CODES: A; S28111 U62234 U65645 H86963 A resident has participated in this service. A pathologist has performed and is responsible for the reported pathologic evaluation. us Zzzhistorical Provider LAB PATHOLOGY ORDERABL ES Final Result SUNQUEST from Last 3 Months or Most Recently Relevant to Health Maintenance Insurance [facility]
--- OUTSIDE RECORDS SUMMARY | 2025-06-17 15:54 | XMS_ITS | Patient Health Record ---
Author Organization [facility] Address [address] [facility] [address] [place] [address] Care Team Providers Care Technology Training Associate Name Role Phone Maryan Castro Unavailable [phone] Americo Perrin Unavailable [phone] Allergies Allergen (clinical drug ingredient) Drug/Non Drug Allergy documented on EMR Reaction Allergy Type Onset Date Status Substance with sulfonamide structure and antibacterial mechanism of action (substance) Sulfa Antibiotics Unknown Drug Allergy Active Results Component Value Reference Range Flag Notes CT/NG/Angela/BV/Trich (Apti ma) Reviewed date:01/23/2025 03:01:06 PM Interpretation:Abnormal Performing Lab:[facility] - NEMESIO CLIA ID [id number], [address] [facility], [address], [place], [place] [address], Director - Emanuel Thrasher MD Notes/Report: Chlamydia Trachomatis Negative Negative Neisseria Gonorrhoeae Negative Negative Bacterial Vaginosis Negative Negative The Aptima BV assay is a real time NAAT TMA assay developed for use on the automated Mabie system that detects and discriminates RNA markers from the Lactobacillus species group (L. gasseri, L. crispatus and L. jensenii), Gardnerella vaginalis, and Atopobium vaginae. The Aptima BV assay uses an algorithm for bacterial vaginosis based on detection of target organisms. Angela species Positive Negative A The CV Assay is a real time TMA assay developed for use on the automated Mabie system that detects following Angela species organisms [...] CAFFEINE USE: 3 Do you have any yarsanism, m oral, or cultural beliefs or customs that your provider should know about? No Would you object to blood products in the event of an emergency? 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 Problem Cyst of ovary (17757571) Unspecified ovarian cysts (N83.20) 2 Active confirmed OVARIAN CYST Vital Signs Blood pressure diastolic 82 mm Hg 01/17/2025 Height 5ft 9 in in 01/17/2025 Blood pressure systolic 120 mm Hg 01/17/2025 Weight 168 lbs 01/17/2025 BMI 24.81 kg/m2 01/17/2025 Encounters Encounter Location Date Provider Diagnosis [facility] [address] [facility] [place] [address] 01/20/2025 Americo Perrin [facility] [address] [facility] [place] [address] 01/17/2025 Americo Perrin Acute vaginitis N76.0 and [...] Insured Coverage Start Date Coverage End Date [facility] [address] [place], [place] [id number] Vidhya Kaiser Self - patient is the insured Medical (General) History Medical History History ICD Code Yeast infections MENSTR FLOW: Medium Medical History: Lung Problems Surgical History Surgery Date(Month/Year) Ovarian cyst removal 2005
[2025-06-17] MEDS: RABIES VACCINE (PCEC)/PF 2.5 UNIT VIAL IM (16:26)
== END 2025-06-17 16:32 | disposition home or self-care (01) ==
LOC: OUTP 15:53
PROVIDERS: PCP Family Medicine; Visit Provider Nurse Practitioner
DX: T75.89XA Other specified effects of external causes, initial encounter (principal); Z23 Encounter for immunization; Z20.3 Contact with and (suspected) exposure to rabies
CPT/HCPCS: 90375; 90472; 90675